=== PATIENT | male | born 1975 | race Caucasian/White ===

== ENCOUNTER → 2016-10-19 | Outpatient (CLI) | payer OTHER ==
[2016-10-14 13:11] VITALS: BMI 34.5
--- NOTE | 2016-10-19 14:51 | P.PN ---
Progress Note - Text Patient came today for initial consultation visit, the nurse interviewing the patient, and he told her that he smoked marijuana, and she told him that we cannot give him any prescription for opiate if he smoked marijuana, and patient left the clinic before he was seen by me,
== END | disposition home or self-care (01) ==
LOC: PNWHC3 13:58
PROVIDERS: ATTEND Specialist
DX: M51.36 Other intervertebral disc degeneration, lumbar region (principal); M50.30 Other cervical disc degeneration, unspecified cervical region; F12.90 Cannabis use, unspecified, uncomplicated

== ENCOUNTER 2017-01-12 08:42 | Emergency (ER) | payer OTHER ==
[2017-01-12 08:49] VITALS: RESP 18; TEMP 97.8
[2017-01-12] MEDS ORDERED: MECLIZINE 12.5 MG TAB PO STA (09:00)
[2017-01-12] MEDS ORDERED: SODIUM CHLORIDE 0.9% 500 ML IV STA (09:00)
--- NOTE | 2017-01-12 09:12 | ED ---
Dizziness HPI - General Chief Complaint: Dizziness Stated Complaint: HYPOGLYCEMIA Time Seen by Provider: 01/12/17 08:52 Source: patient, RN notes reviewed Mode of arrival: wheelchair Limitations: no limitations - History of Present Illness Initial Comments: 41-year-old male presents emergency Department chief complaint of dizziness. Patient states her last 2 days he's had dizziness worse with movement. Patient states it started yesterday morning when he sat up quickly out of bed and felt that the room was spinning. Patient states symptoms lessened throughout the day before still present. Patient states he woke up again today symptoms worse. Patient states that even when he lays back he says it feels symptoms of is not moving they are better. Patient did complain of intermittent chest pain greater than one month. Patient states she has no chest pain this time. Patient states she's also hasn't shortness of breath though he is a daily smoker. Patient states he takes medication for high blood pressure and chronic pain. Patient a states morphine, Percocet. Patient denies any nausea, vomiting , diarrhea, focal weakness. Patient denies any neck pain or any headaches at this time. Patient has blurred vision. Patient has no cold-like symptoms including runny nose, ear pain, sore throat cough or chest congestion. - Related Data Home Medications Medication Instructions Recorded Confirmed Morphine Sulfate ER [Ms Contin 15 mg PO Q12HR 10/14/16 01/12/17 15Mg] oxyCODONE-APAP 10-325MG [Percocet 1 tab PO BID PRN 10/14/16 01/12/17 10-325 mg] Albuterol Inhaler [Ventolin Hfa 1 - 2 puff INHALATION RT-Q4H PRN 01/12/17 Inhaler] Dextroamphetamine/Amphetamine 30 mg PO BID 01/12/17 01/12/17 [Adderall] Omeprazole [PriLOSEC] 20 mg PO DAILY 01/12/17 01/12/17 Previous Rx's Medication Instructions Recorded Meclizine [Antivert] 25 mg PO TID PRN #15 tab 01/12/17 Allergies Allergy/AdvReac Type Severity Reaction Status Date / Time paper tape Allergy blisters Uncoded 10/19/16 14:41 Review of Systems ROS Statement: Those systems with pertinent positive or pertinent negative responses have been documented in the HPI. ROS Other: All systems not noted in ROS Statement are negative. Past Medical History Past Medical History: GERD/Reflux, Hypertension, Liver Disease, Sleep Apnea/CPAP /BIPAP Additional Past Medical History / Comment(s): hx:fatty liver, deteriorating/ bulging disc L3-L5, herniated disc neck History of Any Multi-Drug Resistant Organisms: None Reported Past Surgical History: Appendectomy, Orthopedic Surgery Additional Past Surgical History / Comment(s): rt knee x2 Past Anesthesia/Blood Transfusion Reactions: No Reported Reaction Smoking Status: Current every day smoker Past Alcohol Use History: Occasional Additional Past Alcohol Use History / Comment(s): smoker since age 11- 2ppd Past Drug Use History: Marijuana Additional Drug Use History / Comment(s): 1 joint/day - Past Family History Mother Family Medical History: No Reported History General Exam Limitations: no limitations General appearance: alert, in no apparent distress Head exam: Present: atraumatic, normocephalic, normal inspection Eye exam: Present: normal appearance, PERRL, EOMI. Absent: scleral icterus, conjunctival injection, periorbital swelling ENT exam: Present: normal exam, normal oropharynx, mucous membranes moist, TM's normal bilaterally, normal external ear exam Neck exam: Present: normal inspection, full ROM. Absent: tenderness, meningismus, lymphadenopathy Respiratory exam: Present: normal lung sounds bilaterally. Absent: respiratory distress, wheezes, rales, rhonchi, stridor Cardiovascular Exam: Present: regular rate, normal rhythm, normal heart sounds. Absent: systolic murmur, diastolic murmur, rubs, gallop, clicks Neurological exam: Present: alert, oriented X3, CN II-XII intact, reflexes normal, other (Finger to nose intact bilaterally without shooting.). Absent: motor sensory deficit Skin exam: Present: warm, dry, intact, normal color. Absent: rash Course Vital Signs 01/12/17 08:48 Temperature 97.8 F Pulse Rate 61 Respiratory 18 Rate Blood Pressure 121/71 O2 Sat by Pulse 99 Oximetry EKG Findings - EKG Comments: EKG Findings:: EKG performed at 9:02 normal sinus rhythm with a rate of 62, FL 150, QRS duration 86, QT/QTC 424/[address] elevation or depression. Medical Decision Making - Medical Decision Making 41-year-old male present emergency department for dizziness. Patient's symptoms are worse with movement. Patient does feel better after Antivert. Patient lab work, EKG and chest x-ray within normal limits. Patient has diagnosis of vertigo. Patient be discharged with Antivert return parameters were discussed. - Lab Data Result diagrams: 01/12/17 09:24 01/12/17 09:24 Lab Results 01/12/17 01/12/17 01/12/17 Range/Units 09:24 09:24 09:24 WBC 7.0 (3.8-10.6) k/uL RBC 5.70 (4.30-5.90) m/uL Hgb 16.6 (13.0-17.5) gm/dL Hct 50.9 (39.0-53.0) % MCV 89.2 (80.0-100.0) fL MCH 29.2 (25.0-35.0) pg MCHC 32.7 (31.0-37.0) g/dL RDW 13.0 (11.5-15.5) % Plt Count 350 (150-450) k/uL Neutrophils % 69 % Lymphocytes % 23 % Monocytes % 5 % Eosinophils % 1 % Basophils % 1 % Neutrophils # 4.8 (1.3-7.7) k/uL Lymphocytes # 1.6 (1.0-4.8) k/uL Monocytes # 0.4 (0-1.0) k/uL Eosinophils # 0.1 (0-0.7) k/uL Basophils # 0.0 (0-0.2) k/uL D-Dimer (<0.60) mg/L FEU Sodium 140 (137-145) mmol/L Potassium 4.5 (3.5-5.1) mmol/L Chloride 105 (98-107) mmol/L Carbon Dioxide 22 (22-30) mmol/L Anion Gap 13 mmol/L BUN 13 (9-20) mg/dL Creatinine 0.72 (0.66-1.25) mg/dL Est GFR (MDRD) Af Amer >60 (>60 ml/min/1.73 sqM) Est GFR (MDRD) Non-Af >60 (>60 ml/min/1.73 sqM) Glucose 173 H (74-99) mg/dL Calcium 9.4 (8.4-10.2) mg/dL Total Bilirubin 0.8 (0.2-1.3) mg/dL AST 27 (17-59) U/L ALT 39 (21-72) U/L Alkaline Phosphatase 111 (38-126) U/L Troponin I <0.012 (0.000-0.034) ng/mL Total Protein 7.1 (6.3-8.2) g/dL Albumin 4.2 (3.5-5.0) g/dL 01/12/17 Range/Units 09:24 WBC (3.8-10.6) k/uL RBC (4.30-5.90) m/uL Hgb (13.0-17.5) gm/dL Hct (39.0-53.0) % MCV (80.0-100.0) fL MCH (25.0-35.0) pg MCHC (31.0-37.0) g/dL RDW (11.5-15.5) % Plt Count (150-450) k/uL Neutrophils % % Lymphocytes % % Monocytes % % Eosinophils % % Basophils % % Neutrophils # (1.3-7.7) k/uL Lymphocytes # (1.0-4.8) k/uL Monocytes # (0-1.0) k/uL Eosinophils # (0-0.7) k/uL Basophils # (0-0.2) k/uL D-Dimer 0.35 (<0.60) mg/L FEU Sodium (137-145) mmol/L Potassium (3.5-5.1) mmol/L Chloride (98-107) mmol/L Carbon Dioxide (22-30) mmol/L Anion Gap mmol/L BUN (9-20) mg/dL Creatinine (0.66-1.25) mg/dL Est GFR (MDRD) Af Amer (>60 ml/min/1.73 sqM) Est GFR (MDRD) Non-Af (>60 ml/min/1.73 sqM) Glucose (74-99) mg/dL Calcium (8.4-10.2) mg/dL Total Bilirubin (0.2-1.3) mg/dL AST (17-59) U/L ALT (21-72) U/L Alkaline Phosphatase (38-126) U/L Troponin I (0.000-0.034) ng/mL Total Protein (6.3-8.2) g/dL Albumin (3.5-5.0) g/dL - Radiology Data Radiology results: report reviewed, image reviewed Chest x-ray shows no acute Disposition Clinical Impression: Vertigo Disposition: HOME SELF-CARE Condition: Stable Instructions: Vertigo (ED) Additional Instructions: Please return to the Emergency Department if symptoms worsen or any other concerns. Prescriptions: Meclizine [Antivert] 25 mg PO TID PRN #15 tab PRN Reason: Vertigo Time of Disposition: 10:54
[2017-01-12 09:43] LABS: Basophils % (A) 1 %; CH 29.6; CHCM 33.3; Eosinophils # (A) 0.1 k/uL (0-0.7); Eosinophils % (A) 1 %; HCT 50.9 % (39.0-53.0); HDW 2.53; HGB 16.6 gm/dL (13.0-17.5); Luc # (Auto) 0.11; Luc % (Auto) 2; Lymphocytes # (A) 1.6 k/uL (1.0-4.8); Lymphocytes % (A) 23 %; MCH 29.2 pg (25.0-35.0); MCHC 32.7 g/dL (31.0-37.0); MCV 89.2 fL (80.0-100.0); Mean Platelet Volume 6.7; Monocytes # (A) 0.4 k/uL (0-1.0); Monocytes % (A) 5 %; Neutrophils # (A) 4.8 k/uL (1.3-7.7); Neutrophils % (A) 69 %; WBC (Perox) 7.17
[2017-01-12 09:53] LABS: ALT 39 U/L (21-72); AST 27 U/L (17-59); Alkaline Phosphatase 111 U/L (38-126); Anion Gap 13 mmol/L; Blood Urea Nitrogen 13 mg/dL (9-20); Calcium 9.4 mg/dL (8.4-10.2); Carbon Dioxide 22 mmol/L (22-30); Chloride 105 mmol/L (98-107); Glucose 173 mg/dL (74-99); Non-African American GFR(MDRD) >60 (>60 ml/min/1.73 sqM); Potassium 4.5 mmol/L (3.5-5.1); Sodium 140 mmol/L (137-145); Total Bilirubin 0.8 mg/dL (0.2-1.3); Total Protein 7.1 g/dL (6.3-8.2)
--- NOTE | 2017-01-12 09:57 | XR ---
EXAMINATION TYPE: XR chest 2V DATE OF EXAM: 01/12/2017 9:54 AM COMPARISON: NONE HISTORY: Dizziness and weakness. TECHNIQUE: Frontal and lateral views of the chest are obtained. FINDINGS: There is no focal air space opacity, pleural effusion, or pneumothorax seen. The cardiac silhouette size is within normal limits. The osseous structures are intact. IMPRESSION: No acute cardiopulmonary process.
[2017-01-12 11:17] VITALS: BP 127/65; PULSE 58
== END 2017-01-12 11:15 | disposition home or self-care (01) ==
LOC: EC 08:42
DX: R42 Dizziness and giddiness (principal); H53.8 Other visual disturbances; R07.9 Chest pain, unspecified; G89.29 Other chronic pain; K21.9 Gastro-esophageal reflux disease without esophagitis; F17.200 Nicotine dependence, unspecified, uncomplicated; Z79.891 Long term (current) use of opiate analgesic; Z79.899 Other long term (current) drug therapy; Z91.09 Other allergy status, other than to drugs and biological substances
CPT/HCPCS: 36415; 71020; 80053; 84484; 85025; 85379; 93005; 96360; 99284

== ENCOUNTER → 2017-10-03 | Outpatient (CLI) | payer MEDICARE, OTHER ==
--- NOTE | 2017-10-04 01:11 | MR ---
EXAMINATION TYPE: MR lumbar spine wo/w con DATE OF EXAM: 10/03/2017 COMPARISON: NONE HISTORY: Low back pain TECHNIQUE: Multiplanar, multisequence images of the lumbar spine were acquired utilizing 12 mL intravenous Gadav ist gadolinium contrast. The lumbar vertebra have normal alignment. Disc spaces are fairly well-maintained. There is mild post erior disc herniation at L5-S1 centrally and towards the left side. There are small posterior L4-[address] bulge. There is small posterior L2-3 disc bulge. There is no spinal stenosis. There is development ally adequate spinal canal. I see no pathologic enhancement. The lumbar neural foramina are fairly we ll maintained. There is no compression fracture. There is no paraspinal mass. Sacroiliac joints are i ntact. IMPRESSION: There is posterior central and left-sided L5-S1 disc herniation. No spinal stenosis. Mild posterior c oncentric L2-3 disc bulging. No fracture.
== END | disposition home or self-care (01) ==
LOC: RADMRIMAIN 12:47
PROVIDERS: ATTEND Physician Assistant
DX: M51.27 Other intervertebral disc displacement, lumbosacral region (principal); M51.26 Other intervertebral disc displacement, lumbar region
CPT/HCPCS: 82565; 72158; A9581

== ENCOUNTER → 2018-05-10 | Outpatient (CLI) | payer MEDICARE, OTHER ==
[2018-05-10 12:21] LABS: Blood Urea Nitrogen 19 mg/dL (9-20)
== END | disposition home or self-care (01) ==
LOC: LABWHC1 11:22
PROVIDERS: ATTEND Physical Medicine & Rehabilitation
DX: N28.9 Disorder of kidney and ureter, unspecified (principal)
CPT/HCPCS: 36415; 82565; 84520

== ENCOUNTER 2018-06-21 05:37 | Day surgery (SDC) | payer MEDICARE, OTHER ==
[2018-06-13 15:06] VITALS: BMI 35.2
[~2018-06-21 05:37] MED LIST: BACITRACIN 50,000 UNIT, POLYMYXIN B 500,000 UNIT in SODIUM CHLORIDE 0.9% IRRIGATIO 1,00... IRRIGATION ONE; ceFAZolin IN SWFI 2 GM/20 ML SYRINGE IVP ONE
[2018-06-21] MEDS ORDERED: LIDOCAINE 1% 20 ML VIAL (10MG/ML) FOR IV START INTRADERMA PRN (05:58)
[2018-06-21] MEDS: LACTATED RINGERS 1,000 ML IV SCH ×2 (06:17→07:34)
[2018-06-21] MEDS ORDERED: ONDANSETRON 4 MG/2 ML VIAL ONE (06:19)
[2018-06-21] MEDS ORDERED: NEOSTIGMINE 1 MG/ML 10 ML VIAL ONE (07:37)
[2018-06-21] MEDS ORDERED: PROPOFOL 10 MG/ML 20 ML VIAL IV ONE (07:37)
[2018-06-21] MEDS ORDERED: SUCCINYLCHOLINE CHLORIDE 100 MG/5 ML SYR IV ONE (07:37)
[2018-06-21] MEDS ORDERED: MIDAZOLAM 2 MG/2 ML VIAL ONE (07:37)
[2018-06-21] MEDS ORDERED: GLYCOPYRROLATE 0.2 MG/ML 2 ML VIAL ONE (07:37)
[2018-06-21] MEDS ORDERED: ACETAMINOPHEN IV (For NPO) 1,000 MG/100 ML VIAL ONE (07:37)
[2018-06-21] MEDS ORDERED: KETAMINE 10 MG/ML 20 ML VIAL ONE (07:37)
[2018-06-21] MEDS ORDERED: fentaNYL (PF) 50 MCG/ML 2 ML AMP ONE (07:37)
[2018-06-21] MEDS ORDERED: ALBUTEROL INHALER 60 PUFF/8 GM INHALER INHALATION ONE (07:37)
[2018-06-21] MEDS ORDERED: LIDOCAINE 1% INJ 10MG/ML (20 ML MDV) ONE (07:37)
[2018-06-21] MEDS ORDERED: ROCURONIUM BROMIDE 10 MG/ML 10 ML VIAL IV ONE (07:37)
[2018-06-21] MEDS ORDERED: LIDOCAINE 0.5%-EPI 1:200,000 50 ML VIAL SQ ONE ×2 (08:01)
[2018-06-21] MEDS ORDERED: GELATIN SPONGE,ABSORB (LARGE) 1 EACH SPONGE TOPICAL ONE (08:04)
[2018-06-21] MEDS ORDERED: THROMBIN (BOVINE) 5,000 UNIT VIAL TOPICAL ONE (08:05)
[2018-06-21] MEDS ORDERED: methylPREDNISolone ACETATE 40 MG/ML 1 ML VIAL MISCELLANE ONE (08:28)
--- NOTE | 2018-06-21 08:34 | FL ---
Fluoroscopy HISTORY: Lumbar laminectomy 3 seconds fluoroscopy time supplied to the referring clinician. 1 intraoperative C-arm images docume nt the procedure. See dictated report from orthopedic surgery.
--- NOTE | 2018-06-21 08:35 | XR ---
Limited lumbar spine HISTORY: Lumbar laminectomy Single lateral intraoperative image documents the procedure
[2018-06-21] MEDS ORDERED: LACTATED RINGERS 1,000 ML IV ONE (08:45)
[2018-06-21] MEDS ORDERED: ONDANSETRON 4 MG/2 ML VIAL IVP PRN (09:00)
[2018-06-21] MEDS ORDERED: SODIUM CHLORIDE 0.9% 1,000 ML IV SCH (09:00)
[2018-06-21] MEDS ORDERED: IBUPROFEN 600 MG TAB PO PRN (09:00)
[2018-06-21] MEDS ORDERED: HYDROmorphone 1 MG/ML 1 ML SYRINGE IVP PRN ×2 (09:00)
[2018-06-21] MEDS: HYDROmorphone 1 MG/ML 1 ML SYRINGE IVP PRN ×2 (09:00→09:15)
[2018-06-21] MEDS ORDERED: BENZOCAINE/MENTHOL LOZENG 1 EACH LOZENGE MUCOUS MEM PRN (09:00)
--- NOTE | 2018-06-21 09:09 | P.OP ---
Date of Procedure: 06/21/18 Preoperative Diagnosis: Herniated nucleus pulposis L4 5, lower extremity radiculopathy, lower extremity weakness Postoperative Diagnosis: Same Anesthesia: GETA Pathology: none sent Condition: stable Disposition: PACU Description of Procedure: BRIEF OPERATIVE NOTE Preoperative Diagnosis: Herniated nucleus pulposis L4 5, lower extremity radiculopathy, lower extremity weakness Postoperative Diagnosis: Same Procedure: Laminectomy and decompression at L4 5 Discectomy for decompression at L4 5 Use of fluoroscopic guidance Surgeon: Dr. Oliver Clearance Diver: Shorty Eugene is present throughout the entire the case persistence during positioning, dissection, exposure, visualization, and all crucial elements of the case as well as closure. Anesthesia: General anesthesia Estimated blood loss: approximately 50 mL Complications: None apparent Components implanted: none Disposition: To recovery room in good stable condition. OPERATIVE INDICATIONS The patient has been having issues in their lower back and lower extremities. He was found have a disc herniation at L4 5 with extruded fragment that had migrated cephalad. The findings correlated well with his low back and lower extremity radiculopathy well some weakness in his lower extremity. The patient has been through conservative treatment. he is not having any significant benefit despite aggressive conservative care. We discussed various treatment options including surgery, and the patient wishes to proceed with surgery We discussed the risk, patient's alternatives and benefits of surgery including but not limited to, risk of bleeding risk of infection, risk of need for further surgery, risk of decreased, loss of motion, loss of function, nerve damage, paralysis, heart attack, blindness and . OPERATIVE SUMMARY After discussing all the risks, patient alternatives and benefits at length, the patient elected to proceed with surgical intervention, signed informed consent, and presented for their procedure. The patient was seen and examined in the preoperative holding area and the surgical site was marked. The patient was given antibiotics and brought to the operating room. The patient was sedated and intubated by anesthesia in standard fashion. The patient was positioned on to the operating room table in a prone position on the appropriate frame which was well-padded and well molded. We were careful to pad any bony prominences and pressure points. We were careful to maintain the patient's cervical spine and good neutral alignment and position throughout. The patient was prepped and draped in a normal standard fashion. An appropriate timeout and keystone protocol performed. We were able to proceed with the surgery. Fluoroscopy was utilized to establish the appropriate level At L4 5. The local wound area was infiltrated with local anesthetic. An incision was made at the midline longitudinally over the appropriate levels Approximately 2 cm at L4 5. Dissection was taken down subcutaneously to the level of the fascia which was split midline. Dissection was taken over the lamina. Intraoperative fluoroscopy was taken which showed a marker at the appropriate level. With the appropriate level positively confirmed, at L4 5, we were able to proceed with laminectomy. The wound was copiously irrigated and suctioned dry as had been done periodically throughout the case. I performed a laminectomy with a combination of curettes and a high-speed bur and Kerrison rongeurs. A small medial facetectomy was performed again further access. A partial foraminotomy was also performed. Portions of the ligamentum flavum were taken down to expose the dura and traversing nerve root. I was able to mobilize the traversing nerve root and gain access to the disc space. Note was made of obvious compression from the disc. Protecting the soft tissue structures, a small annulotomy was established. I was able to perform discectomy and remove any extruded disc fragments and any loose fragments from within the disc itself. there was a extruded fragment with cephalad migration which was able to be mobilized and removed. There is some significant disc desiccation noted. I tried to preserve the disc annulus that appeared stable. There were no further extruded fragments noted. There is no evidence of dural tear or leak. Good hemostasis maintained. The wound was copiously irrigated and suctioned dry. Good decompression and discectomy was noted. We were able to proceed with closure. The fascia was closed for a watertight closure. The subcuticular tissue was closed with absorbable suture. The wound was cleaned and dried and dressed with the appropriate dressing. The drapes were broken down. The patient was gently rolled back onto their hospital bed being careful to maintain their cervical spine and good neutral alignment and position. They were woken up by anesthesia, extubated, and brought to the recovery room in good stable condition. The patient will be admitted to the hospital for observation and for appropriate postoperative care, medical management and monitoring. We will continue to follow them closely about the postoperative course.
[2018-06-21] MEDS ORDERED: SENNOSIDES-DOCUSATE SODIUM 1 EACH TAB PO SCH (10:00)
[2018-06-21 11:35] VITALS: TEMP 97.6
[2018-06-21] MEDS ORDERED: KETOROLAC 30 MG/ML 1 ML VIAL IVP SCH (12:00)
[2018-06-21 12:23] VITALS: BP 132/45; PULSE 86; RESP 16
[2018-06-21] MEDS ORDERED: ceFAZolin IN SWFI 2 GM/20 ML SYRINGE IVP SCH (16:00)
== END 2018-06-21 12:15 | disposition home or self-care (01) ==
LOC: OR 05:37 → 5ONC 08:49 → OR 12:15
PROVIDERS: ATTEND Orthopaedic Surgery Orthopaedic Surgery of the Spine
DX: M51.26 Other intervertebral disc displacement, lumbar region (principal); I10 Essential (primary) hypertension; M48.061 Spinal stenosis, lumbar region without neurogenic claudication; M51.16 Intervertebral disc disorders with radiculopathy, lumbar region; F17.210 Nicotine dependence, cigarettes, uncomplicated; K21.9 Gastro-esophageal reflux disease without esophagitis; G89.4 Chronic pain syndrome; Z79.899 Other long term (current) drug therapy; Z82.49 Family history of ischemic heart disease and other diseases of the circulatory system
CPT/HCPCS: 72020; 63030; J2250; J1030; J2710; J2405; J2001; J3010; J1170; J0131; J0330; J2704; J0690

== ENCOUNTER 2019-08-23 12:03 | Emergency (ER) | payer OTHER, MEDICARE ==
[2019-08-23 12:18] VITALS: TEMP 98.5
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
[2019-08-23 14:36] VITALS: BP 117/81; PULSE 64; RESP 16
== END 2019-08-23 14:36 | disposition home or self-care (01) ==
LOC: EC 12:03
DX: S33.5XXA Sprain of ligaments of lumbar spine, initial encounter (principal); M79.672 Pain in left foot; K21.9 Gastro-esophageal reflux disease without esophagitis; I10 Essential (primary) hypertension; G47.30 Sleep apnea, unspecified; Z99.89 Dependence on other enabling machines and devices; F17.200 Nicotine dependence, unspecified, uncomplicated; Z79.1 Long term (current) use of non-steroidal anti-inflammatories (NSAID); Z79.899 Other long term (current) drug therapy; Z91.048 Other nonmedicinal substance allergy status; V29.49XA Motorcycle driver injured in collision with other motor vehicles in traffic accident, initial encounter; Y92.410 Unspecified street and highway as the place of occurrence of the external cause
CPT/HCPCS: 71046; 72125; 72131; 73502; 99284

== ENCOUNTER → 2019-11-07 | Outpatient (CLI) | payer MEDICARE, OTHER ==
--- NOTE | 2019-11-07 19:41 | MR ---
EXAMINATION TYPE: MR lumbar spine wo/w con DATE OF EXAM: 11/07/2019 COMPARISON: 10/03/2017 HISTORY: low Back Pain CONTRAST: 11.5 mL intravenous Gadavist. TECHNIQUE: Multiplanar, multisequence images of the lumbar spine were acquired. FINDINGS: L5-S1: Mild disc bulge is present with anterior thecal sac flattening facet hypertrophy is present. M oderate bilateral foraminal narrowing is present on the left. Findings appear stable No spinal canal stenosis. L4-L5: There is mild disc bulging with mild anterior thecal sac flattening. This is slightly greater to the left paracentral region. No spinal canal stenosis. No foraminal stenosis. L3-L4: No significant disc bulge or disc herniation. No spinal canal stenosis. No foraminal stenosi s. L2-L3: Minimal disc bulge is present with intrathecal sac contact. No spinal canal stenosis is presen t No foraminal stenosis. L1-L2: No significant disc bulge or disc herniation. No spinal canal stenosis. No foraminal stenosi s. T12-L1: No significant disc bulge or disc herniation. No spinal canal stenosis. No foraminal stenos is. No abnormal enhancement. IMPRESSION: 1. Mild stable disc bulging L2-3, L4-5, L5-S1. 2. Mild foraminal narrowing L5-S1
== END | disposition home or self-care (01) ==
LOC: RADMRIMAIN 17:01
PROVIDERS: ATTEND Physician Assistant Medical
DX: M48.061 Spinal stenosis, lumbar region without neurogenic claudication (principal); M48.07 Spinal stenosis, lumbosacral region; M51.26 Other intervertebral disc displacement, lumbar region; M51.27 Other intervertebral disc displacement, lumbosacral region
CPT/HCPCS: 72158; A9585

== ENCOUNTER 2022-12-30 14:46 | Emergency (ER) | payer MEDICARE, OTHER ==
[2022-12-30] MEDS ORDERED: PROPARACAINE 0.5% OPHTH DROPS 15 ML BTL LEFT EYE STA (15:14)
[2022-12-30] MEDS ORDERED: FLUORESCEIN STRIPS 1 MG STRIP RIGHT EYE ONE (15:16)
--- NOTE | 2022-12-30 15:28 | ED ---
General Adult HPI - General Chief complaint: Eye Problems Stated complaint: Lt eye pain Time Seen by Provider: 12/30/22 15:06 Source: patient, RN notes reviewed Mode of arrival: ambulatory Limitations: no limitations - History of Present Illness Initial comments: 47-year-old male presents to the emergency department chief complaint of left eye pain. Pain started around 1600 yesterday. He states that he was working with wood and metal yesterday but the pain started after. He admits to mild blurring of vision in the left eye. He does not wear contacts. States that he wears reading glasses. Denies fever. - Related Data Home Medications Medication Instructions Recorded Confirmed Omeprazole [PriLOSEC] 20 mg PO DAILY 01/12/17 06/21/18 Ammonium Lactate Cream [Lac-Hydrin 1 applic TOPICAL BID PRN 12/30/22 12/30/22 12% Cream] Betamethasone Dipropionate 1 applic TOPICAL BID PRN 12/30/22 12/30/22 [Betamethasone Dipropionate 0.05%] Dextroamphetamine/Amphetamine 30 mg PO DAILY 12/30/22 12/30/22 [Adderall Xr 30 mg Capsule] Losartan Potassium [Cozaar] 25 mg PO DAILY 12/30/22 12/30/22 Triamcinolone 0.1% Cream [Kenalog 1 applicatio TOPICAL BID 12/30/22 12/30/22 0.1% Cream] Allergies Allergy/AdvReac Type Severity Reaction Status Date / Time paper tape AdvReac blisters Uncoded 12/30/22 15:33 Review of Systems ROS Statement: Those systems with pertinent positive or pertinent negative responses have been documented in the HPI. ROS Other: All systems not noted in ROS Statement are negative. Past Medical History Past Medical History: GERD/Reflux, Hypertension, Liver Disease, Sleep Apnea/CPAP/BIPAP Additional Past Medical History / Comment(s): hx:fatty liver, deteriorating/bulging disc L3-L5, herniated disc neck History of Any Multi-Drug Resistant Organisms: None Reported Past Surgical History: Appendectomy, Orthopedic Surgery Additional Past Surgical History / Comment(s): rt knee x2 Past Anesthesia/Blood Transfusion Reactions: No Reported Reaction Past Psychological History: No Psychological Hx Reported Smoking Status: Current every day smoker Past Alcohol Use History: Occasional Past Drug Use History: Marijuana - Past Family History Mother Family Medical History: Cancer General Exam Limitations: no limitations General appearance: alert, in no apparent distress Head exam: Present: atraumatic, normocephalic, normal inspection Eye exam: Present: PERRL, EOMI, conjunctival injection. Absent: normal appearance (small foreign body to cornea ), scleral icterus, periorbital swelling ENT exam: Present: normal exam, mucous membranes moist Neck exam: Present: normal inspection. Absent: tenderness, meningismus, lymphadenopathy Respiratory exam: Present: normal lung sounds bilaterally. Absent: respiratory distress, wheezes, rales, rhonchi, stridor Cardiovascular Exam: Present: regular rate, normal rhythm, normal heart sounds. Absent: systolic murmur, diastolic murmur, rubs, gallop, clicks Neurological exam: Present: alert, oriented X3 Skin exam: Present: warm, dry, intact, normal color. Absent: rash Course Vital Signs 12/30/22 14:57 Temperature 97.8 F Pulse Rate 74 Respiratory 20 Rate Blood Pressure 170/87 O2 Sat by Pulse 97 Oximetry Procedures - Forgein Body Removal Eye Site: Left Anesthetic Used: Proparacaine Eye Exam Technique: Willson Lamp, Fluorescein Foreign Body Suspected: Metal Forgein Body Removal Technique: Cotton Swab Remaining Debris: No Patient Tolerated: well Medical Decision Making - Medical Decision Making Was pt. sent in by a medical professional or institution (FREDDIE Jasmine, GUEST SERVICE SUPERVISOR, urgent care, hospital, or fci...) When possible be specific @ -[No] Did you speak to anyone other than the patient for history (EMS, parent, family, police, friend...)? What history was obtained from this source @ -[No] Did you review nursing and triage notes (agree or disagree)? Why? @ -[I reviewed and agree with nursing and triage notes] Were old charts reviewed (outside hosp., previous admission, EMS record, old EKG, old radiological studies, urgent care reports/EKG's, fci records)? Report findings @ -[No old charts were reviewed] Differential Diagnosis (chest pain, altered mental status, abdominal pain women, abdominal pain men, vaginal bleeding, weakness, fever, dyspnea, syncope, headache, dizziness, GI bleed, back pain, seizure, CVA, palpatations, mental health, musculoskeletal)? @ -[ocular foreign body, conjunctivitis, keratitis, this list is not all inclusive ] EKG interpreted by me (3pts min.). @ -none X-rays interpreted by me (1pt min.). @ -[None done] CT interpreted by me (1pt min.). @ -[None done] U/S interpreted by me (1pt. min.). @ -[None done] What testing was considered but not performed or refused? (CT, X-rays, U/S, la bs)? Why? @ -[None] What meds were considered but not given or refused? Why? @ -[None] Did you discuss the management of the patient with other professionals (professionals i.e. , PA, GUEST SERVICE SUPERVISOR, lab, RT, psych nurse, social work case manager, heater installer, teacher, protocol officer, telehealth case manager)? Give summary @ -[No] Was smoking cessation discussed for >3mins.? @ -[No] Was critical care preformed (if so, how long)? @ -[No] Were there social determinants of health that impacted care today? How? (Homelessness, low income, unemployed, alcoholism, drug addiction, transportation, low edu. Level, literacy, decrease access to med. care, care home, rehab)? @ -[No] Was there de-escalation of care discussed even if they declined (Discuss DNR or withdrawal of care, Hospice)? DNR status @ -[No] What co-morbidities impacted this encounter? (DM, HTN, Smoking, COPD, CAD, Cancer, CVA, ARF, Chemo, Hep., AIDS, mental health diagnosis, sleep apnea, morbid obesity)? @ -[None] Was patient admitted / discharged? Hospital course, mention meds given and route, prescriptions, significant lab abnormalities, going to OR and other pe rtinent info. @ -discharged. pt presented with eye pain x 1 day. Fluorescence staining was performed with proparicaine anesthetic with no obvious corneal abrasion. Small foreign body removed. tetanus updated. Tobrex drops administered. patient discharged in stable condition. follow up with ophthalmology as outpatient. Undiagnosed new problem with uncertain prognosis? @ -[No] Drug Therapy requiring intensive monitoring for toxicity (Heparin, Nitro, Insulin, Cardizem)? @ -[No] Were any procedures done? @ -[ocular foreign body removal] Diagnosis/symptom? @ -[ocular foreign body Acute, or Chronic, or Acute on Chronic? @ -Acute Uncomplicated (without systemic symptoms) or Complicated (systemic symptoms)? @ -Uncomplicated Side effects of treatment? @ -[No] Exacerbation, Progression, or Severe Exacerbation? @ -[No] Poses a threat to life or bodily function? How? (Chest pain, [place], [place], pneumonia, PE, COPD, DKA, ARF, appy, cholecystitis, CVA, Diverticulitis, Homicidal, Suicidal, threat to staff... and all critical care pts) @ -[No] Disposition Clinical Impression: Foreign body of cornea Disposition: HOME SELF-CARE Condition: Stable Instructions (If sedation given, give patient instructions): Eye Foreign Body (ED) Additional Instructions: Please return to the Emergency Department if symptoms worsen or any other concerns. Is patient prescribed a controlled substance at d/c from ED?: No Referrals: Slava Stacy Jr, DO [Primary Care Provider] - 1-2 days Giorgio Groves MD [STAFF PHYSICIAN] - 1-2 days Time of Disposition: 16:00
[2022-12-30] MEDS ORDERED: TOBRAMYCIN 0.3% OPHTH DROPS 5 ML BTL LEFT EYE STA (15:46)
[2022-12-30] MEDS ORDERED: DIPH,PERTUS(ACELL)TETVAC-LF 0.5 ML VIAL IM ONE (15:47)
[2022-12-30 16:31] VITALS: BP 161/76; PULSE 71; RESP 18; TEMP 98
== END 2022-12-30 16:30 | disposition home or self-care (01) ==
LOC: EC 14:46
DX: T15.02XA Foreign body in cornea, left eye, initial encounter (principal); K21.9 Gastro-esophageal reflux disease without esophagitis; I10 Essential (primary) hypertension; G47.30 Sleep apnea, unspecified; F17.200 Nicotine dependence, unspecified, uncomplicated; F12.90 Cannabis use, unspecified, uncomplicated; Z79.899 Other long term (current) drug therapy; Z91.09 Other allergy status, other than to drugs and biological substances; Z23 Encounter for immunization; W45.8XXA Other foreign body or object entering through skin, initial encounter
CPT/HCPCS: 65220; 90471; 90715; 99283

== ENCOUNTER 2023-02-15 14:55 | Emergency (ER) | payer MEDICARE, OTHER ==
[2023-02-15 15:07] VITALS: BP 115/76; PULSE 66; TEMP 98.1
[2023-02-15] MEDS ORDERED: methylPREDNISolone SOD SUCCI 125 MG/2 ML VIAL IM ONE (15:35)
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
[2023-02-15 16:05] VITALS: RESP 16
== END 2023-02-15 16:05 | disposition home or self-care (01) ==
LOC: EC 14:55
DX: M79.652 Pain in left thigh (principal); I10 Essential (primary) hypertension; K21.9 Gastro-esophageal reflux disease without esophagitis; F17.200 Nicotine dependence, unspecified, uncomplicated; F12.90 Cannabis use, unspecified, uncomplicated; Z79.899 Other long term (current) drug therapy; Z91.09 Other allergy status, other than to drugs and biological substances; X50.1XXA Overexertion from prolonged static or awkward postures, initial encounter
CPT/HCPCS: 99283; 96372; J2930

== ENCOUNTER → 2024-08-11 | Outpatient (CLI) | payer MEDICARE, OTHER ==
--- NOTE | 2024-08-12 09:03 | MR ---
EXAMINATION TYPE: MR knee LT wo con DATE OF EXAM: 08/11/2024 COMPARISON: None HISTORY: Left knee pain and swelling x1 month, Slipped on stairs TECHNIQUE: Multiplanar, multisequence imaging of the left knee is performed without IV contrast. FINDINGS: There is a small joint effusion and a tiny Neely's cyst. There is a complex tear of the posterior horn of the medial meniscus. The lateral meniscus is intact. There is a mild strain of the ACL. The posterior cruciate ligament and medial and lateral collateral ligaments are intact. There is edema in the mid tibial plateau but no discrete fracture. The articular cartilages are intact. There is no osteochondral defect. The patellar quadriceps tendons are intact. IMPRESSION: 1. Complex tear of the posterior horn of the medial meniscus. 2. Mild strain of the anterior cruciate ligament. 3. Small joint effusion and tiny Neely's cyst. 4. Contusion/edema in the mid tibial plateau. [facility], Workstation: [facility], 08/12/2024 9:01 AM
== END | disposition home or self-care (01) ==
LOC: RADMRIMAIN 10:52
PROVIDERS: ATTEND Family Medicine
DX: M23.8X2 Other internal derangements of left knee (principal); S80.02XA Contusion of left knee, initial encounter; M25.462 Effusion, left knee

== ENCOUNTER 2024-08-30 12:18 | Day surgery (SDC) | payer MEDICARE, OTHER ==
[2024-08-28 12:56] VITALS: BMI 34.8
--- NOTE | 2024-08-30 02:44 | HP ---
HISTORY AND PHYSICAL DATE OF SURGERY: 08/30/2024. HISTORY OF PRESENT ILLNESS: Oscar Odom is a 48-year-old patient seen with progressive left knee pain. We discussed options regarding treatment. He elected to proceed with left knee arthroscopy. Consent was obtained. PAST MEDICAL HISTORY: Hypertension, gastroesophageal reflux disease. PAST SURGICAL HISTORY: Knee arthroscopy. DAILY MEDICATIONS: 1. Omeprazole. 2. Adderall. 3. Percocet. ALLERGIES: Paper tape. SOCIAL HISTORY: Smokes cigarettes. PHYSICAL EVALUATION OF THE LEFT KNEE: Range of motion is -1/2 120 degrees. Mild effusion. Tenderness, medial joint line. Positive medial Sheryl's. Ligaments stable. Distal neurovascular exam intact. IMAGING STUDIES: Left knee radiographs revealed mild medial compartment osteoarthritis. MRI left knee complex medial meniscal tear and effusion. IMPRESSION: 1. Internal derangement of left knee with medial meniscal tear. 2. Hypertension. 3. Gastroesophageal reflux disease. PLAN: Left knee arthroscopy with partial medial meniscectomy and debridement. MMODL / IJN: [id number] /
[~2024-08-30 12:18] MED LIST changes: -BACITRACIN 50,000 UNIT, POLYMYXIN B 500,000 UNIT in SODIUM CHLORIDE 0.9% IRRIGATIO 1,00... IRRIGATION ONE; +HYDROmorphone 0.5 MG/0.5 ML SYRINGE IVP PRN; +LIDOCAINE 1% (10MG/ML) FOR IV START INTRADERMA PRN; -ceFAZolin IN SWFI 2 GM/20 ML SYRINGE IVP ONE; +droPERidol 5 MG/2 ML VIAL IVP ONE
[2024-08-30] MEDS: IV FLUID CONTINUATION 1,000 ML IV ONE ×2 (12:46→14:45)
[2024-08-30 13:00] VITALS: RESP 18
[2024-08-30] MEDS: LACTATED RINGERS 1,000 ML IV SCH (13:02)
[2024-08-30] MEDS: DEXAMETHASONE SOD PHOSPHATE 4 MG/ML 1 ML VIAL IV ONE (13:02)
[2024-08-30] MEDS: ONDANSETRON 4 MG/2 ML VIAL IVP ONE (13:02)
[2024-08-30] MEDS ORDERED: fentaNYL (PF) 50 MCG/ML 2 ML AMP ONE (13:30)
[2024-08-30] MEDS ORDERED: PROPOFOL 10 MG/ML 20 ML VIAL IV ONE (13:30)
[2024-08-30] MEDS ORDERED: SUCCINYLCHOLINE CHLORIDE 200 MG/10 ML VIAL IV ONE (13:30)
[2024-08-30] MEDS ORDERED: LIDOCAINE 1% INJ 10MG/ML (20 ML MDV) ONE (13:30)
[2024-08-30] MEDS: BUPIVACAINE (PF) 0.25% 30 ML VIAL SQ ONE ×2 (13:33→14:04)
--- NOTE | 2024-08-30 14:20 | P.OP ---
Date of Procedure: 08/30/24 Preoperative Diagnosis: Internal derangement left knee Postoperative Diagnosis: 1. Tear medial and lateral meniscus left knee 2. Reactive synovitis medial, lateral and suprapatellar compartments left knee 3. Partial ACL tear left knee Procedure(s) Performed: 1. Arthroscopic partial medial and lateral meniscectomy left knee 2. Arthroscopic partial synovectomy medial, lateral and suprapatellar compartments left knee 3. Arthroscopic debridement partial ACL tear left knee Anesthesia: ROSEANNEA, local Surgeon: Wesley Reed Estimated Blood Loss (ml): 5 Pathology: none sent Condition: stable Disposition: PACU Indications for Procedure: 48-year-old gentleman seen with progressive left knee pain. After having treatment options discussed, he elected to proceed with arthroscopy. Operative Findings: See description of procedure Description of Procedure: Patient was taken to the operative suite. Patient underwent a general anesthetic by the department of anesthesia. Patient was given preoperative antibiotics. The left lower extremity was placed in a well-padded arthroscopic leg coleman. The left leg was prepped and draped in the normal sterile orthopedic fashion. A lateral parapatellar and suprapatellar incision was made. Trochars were inserted. Arthroscopy was initiated. Suprapatellar pouch revealed diffuse thick reactive synovitis. The patellofemoral joint appeared to articulate congruently. There was grade I chondromalacia of the patella without significant tears. The scope was guided into the medial gutter. No loose bodies or plica were identified. The scope was then guided into the medial c ompartment. A medial parapatellar incision was made. Trocar inserted followed by probe. There was a complex tear involving the posterior horn and mid bodies of the medial meniscus. There were grade I chondromalacia changes involving the medial compartment. There was thick reactive synovitis anteriorly. I performed a partial medial meniscectomy getting down to stable meniscal tissue. I perfo rmed a partial synovectomy decompressing the reactive synovitis. The residual meniscus was stable. There was good decompression of the synovitis. Scope and probe were then guided into the intercondylar notch. There appeared to be some partial tearing of the anterior cruciate ligament. I debrided those areas of tearing with a motorized shaver. The residual ACL appeared stable with about 70% of the remaining ligament intact. PCL appeared stable. The scope and probe were then guided into lateral compartment. There was a radial tear involving the mid bilateral meniscus. There was some thick reactive synovitis anteriorly. There were grade I chondromalacia changes lateral tibial plateau without tears. I performed a partial lateral meniscectomy getting down to stable meniscal tissue. I performed a partial synovectomy decompressing the reactive synovitis. The residual meniscus was stable. There was good decompression of the synovitis. The scope was in guided back into the suprapatellar compartment. I reduced a motorized shaver into the suprapatellar compartment. I debrided some piecemeal fragments of meniscus I encountered. I performed a partial synovectomy. The shaver was now removed. There was good decompression of the synovitis. I now took 1 more look around the entire knee, no residual debris. Instruments were now removed from the joint. The joint was infiltrated with .25% Marcaine. Steri-Strips were applied to the portal sites. Sterile dressings were applied. The patient was placed into a DAMEON hose. No tourniquet was utilized. The patient was awakened, transferred to a bed and taken to recovery stable satisfactory condition.
[2024-08-30 14:32] VITALS: TEMP 98.4
[2024-08-30 15:25] VITALS: BP 105/69; PULSE 75
== END 2024-08-30 15:55 | disposition home or self-care (01) ==
LOC: OR 12:18
PROVIDERS: ATTEND Orthopaedic Surgery
DX: S83.232A Complex tear of medial meniscus, current injury, left knee, initial encounter (principal); S83.282A Other tear of lateral meniscus, current injury, left knee, initial encounter; S83.512A Sprain of anterior cruciate ligament of left knee, initial encounter; M94.262 Chondromalacia, left knee; M17.12 Unilateral primary osteoarthritis, left knee; M65.862 Other synovitis and tenosynovitis, left lower leg; I10 Essential (primary) hypertension; G47.33 Obstructive sleep apnea (adult) (pediatric); K21.9 Gastro-esophageal reflux disease without esophagitis; K76.0 Fatty (change of) liver, not elsewhere classified; F17.210 Nicotine dependence, cigarettes, uncomplicated; Z79.899 Other long term (current) drug therapy
CPT/HCPCS: 29880; 29876; J1100; J0690; J2405; J0665

== ENCOUNTER 2024-09-10 10:36 | Observation (INO) | payer MEDICARE, OTHER ==
[2024-09-10] MEDS: IV FLUID CONTINUATION 1,000 ML IV ONE (10:55)
[2024-09-10] MEDS: LACTATED RINGERS 1,000 ML IV SCH (11:06)
[2024-09-10] MEDS ORDERED: PROPOFOL 10 MG/ML 20 ML VIAL IV ONE (11:39)
[2024-09-10] MEDS ORDERED: LIDOCAINE 1% INJ 10MG/ML (20 ML MDV) ONE (11:39)
--- NOTE | 2024-09-10 12:12 | P.GSHP ---
History of Present Illness H&P Date: 09/10/24 Chief Complaint: Screening colonoscopy Is a 48-year-old male presents today for screening colonoscopy. Patient denies any significant GI complaints. Past Medical History Past Medical History: GERD/Reflux, Hypertension, Liver Disease, Sleep Apnea/CPAP/BIPAP Additional Past Medical History / Comment(s): hx:fatty liver, deteriorating/bulging disc L3-L5, herniated disc neck History of Any Multi-Drug Resistant Organisms: None Reported Past Surgical History: Appendectomy, Orthopedic Surgery Additional Past Surgical History / Comment(s): rt knee x2, recent arthroscopy left knee 08/30/24 Past Anesthesia/Blood Transfusion Reactions: No Reported Reaction Smoking Status: Current every day smoker - Past Family History Mother Family Medical History: Cancer Medications and Allergies Home Medications Medication Instructions Recorded Confirmed Type Omeprazole [PriLOSEC] 20 mg PO DAILY 01/12/17 09/10/24 History Dextroamphetamine/Amphetamine 30 mg PO DAILY 12/30/22 09/10/24 History [Adderall Xr 30 mg Capsule] Losartan Potassium [Cozaar] 25 mg PO DAILY 12/30/22 09/10/24 History Glucosam/Rigo-Msm1/C/Jimbo/Bosw 1 each PO DAILY 08/28/24 09/10/24 History [Glucosamine-Chondroitin Tablet] Ibuprofen [Motrin] 800 mg PO Q8H PRN 08/28/24 09/10/24 History Magnesium 200 mg PO DAILY 08/28/24 09/10/24 History HYDROcodone/APAP 5-325MG [[place] 1 tab PO Q6HR PRN #12 tab 08/30/24 09/10/24 Rx 5-325] Allergies Allergy/AdvReac Type Severity Reaction Status Date / Time paper tape AdvReac blisters Uncoded 09/10/24 11:08 Surgical - Exam Vital Signs Pulse Resp BP Pulse Ox 55 L 16 150/67 100 09/10/24 10:55 09/10/24 10:55 09/10/24 10:55 09/10/24 10:55 - General well developed, well nourished, no distress - Eyes PERRL - ENT normal pinna - Neck no masses - Respiratory normal expansion - Cardiovascular Rhythm: regular - Abdomen Abdomen: soft, non tender Assessment and Plan Assessment: Will perform screening colonoscopy
--- NOTE | 2024-09-10 12:14 | P.OP ---
Date of Procedure: 09/10/24 Preoperative Diagnosis: Screening colonoscopy Postoperative Diagnosis: Normal colonoscopy Procedure(s) Performed: Colonoscopy Anesthesia: MAC Surgeon: Endy Hu Pathology: none sent Condition: stable Disposition: PACU Description of Procedure: The patient was placed on the endoscopy table in the lateral position. He received IV sedation. Digital rectal exams performed. This revealed no abnormalities. The flexible colonoscope was then placed patient anus passed throughout the entire colon. The ileocecal valve was visualized. The cecum, ascending and transverse colon appeared normal. The descending and sigmoid colon appeared normal. Scope was then brought back to the rectum this appeared normal. Scope withdrawn for the patient. The patient was noted to have tachycardia which appeared to be irregular. Anesthesia was working the patient up for new onset A-fib.
[2024-09-10] MEDS ORDERED: LORazepam 2 MG/ML INJ IV PRN (13:08)
[2024-09-10] MEDS: METOPROLOL SUCCINATE (ER) 25 MG TAB.ER.24H PO SCH (13:17)
--- NOTE | 2024-09-10 13:17 | P.CRDCN ---
History of Present Illness History of present illness: HISTORY OF PRESENT ILLNESS: This is a 48-year-old male with a past medical history significant for hypertension, obstructive sleep apnea, obesity, nicotine dependence, frequent alcohol use, and daily marijuana use. Patient does not follow with a mangle press catcher. We have been asked to see the patient in consultation for A-fib with RVR. Patient examined at the bedside in the recovery room. Patient underwent routine screening colonoscopy today with Dr. Hu. Endoscopy was unremarkable and patient's colon appeared normal per dictation. The patient was found to be tachycardic afterwards. An EKG was performed revealing atrial fibrillation with RVR. The patient denies a history of atrial fibrillation. The patient currently denies any chest pain or pressure. He denies any shortness of breath. He denies any palpitations. He denies dizziness or lightheadedness. He remains in atrial fibrillation at the time of examination with a heart rate around [id number]. Patient is a current cigarette smoker and smokes 2 packs/day. Patient reports drinking every weekend and occasionally throughout the week. He also reports daily marijuana use. He also reports a history of low testosterone and has been on testosterone replacement for the past several months. REVIEW OF SYSTEMS: At the time of my exam: CONSTITUTIONAL: Denies fever or chills. HEENT: Denies blurred vision, vision changes, or eye pain. Denies hemoptysis CARDIOVASCULAR: Denies chest pain. Denies orthopnea. Denies PND. Denies palpitations RESPIRATORY: Denies shortness of breath. GASTROINTESTINAL: Denies abdominal pain. Denies nausea or vomiting. HEMATOLOGIC: Denies bleeding disorders. GENITOURINARY: Denies any blood in urine. SKIN: Denies pruitis. Denies rash. PHYSICAL EXAM: VITAL SIGNS: Reviewed. GENERAL: Well-developed in no acute distress. HEENT: Head is normocephalic. Pupils are equal, round. Sclerae anicteric. Mucous membranes of the mouth are moist. Neck supple. No JVD or thyromegaly LUNGS: Respirations even and unlabored. Lungs essentially clear to auscultation bilaterally. HEART: Mildly tachycardic. Irregular rate and rhythm. S1 and S2 heard. ABDOMEN: Soft. Nondistended. Nontender. EXTREMITIES: Normal range of motion. No clubbing or cyanosis. Peripheral pulses intact. No lower extremity edema NEUROLOGIC: Awake and alert. Oriented x 3. ASSESSMENT: Status post screening colonoscopy revealing unremarkable colon New onset A-fib with RVR Hypertension Obstructive sleep apnea with CPAP use Nicotine dependence, patient reports smoking 2 packs/day Frequent alcohol use Daily marijuana use Obesity: BMI 49.4 PLAN: Obtain 2D echo to assess cardiac structure and function Begin metoprolol succinate 25 mg daily. First dose now. Begin Eliquis 5 mg twice a day. Patient cleared to begin anticoagulation per Dr. Hu. Check TSH, CBC, BMP, magnesium, lipid panel, and hemoglobin A1c Smoking cessation recommended. Patient to be referred to [place] quit line upon discharge Abstinence from alcohol and marijuana encouraged Continue telemetry monitoring Admit to 6N with telemetry Possible discharge this evening versus tomorrow Further recommendations pending patient course Nurse practitioner note has been reviewed by physician. Signing provider agrees with the documented findings, assessment, and plan of care documented by TECHNOLOGY RESOURCE TEACHER as a scribe. Past Medical History Past Medical History: GERD/Reflux, Hypertension, Liver Disease, Sleep Apnea/CPAP/BIPAP Additional Past Medical History / Comment(s): hx:fatty liver, deteriorating/bulging disc L3-L5, herniated disc neck History of Any Multi-Drug Resistant Organisms: None Reported Past Surgical History: Appendectomy, Orthopedic Surgery Additional Past Surgical History / Comment(s): rt knee x2, recent arthroscopy left knee 08/30/24 Past Anesthesia/Blood Transfusion Reactions: No Reported Reaction Smoking Status: Current every day smoker - Past Family History Mother Family Medical History: Cancer Medications and Allergies Home Medications Medication Instructions Recorded Confirmed Type Omeprazole [PriLOSEC] 20 mg PO DAILY 01/12/17 09/10/24 History Dextroamphetamine/Amphetamine 30 mg PO DAILY 12/30/22 09/10/24 History [Adderall Xr 30 mg Capsule] Losartan Potassium [Cozaar] 25 mg PO DAILY 12/30/22 09/10/24 History Glucosam/Rigo-Msm1/C/Jimbo/Bosw 1 each PO DAILY 08/28/24 09/10/24 History [Glucosamine-Chondroitin Tablet] Ibuprofen [Motrin] 800 mg PO Q8H PRN 08/28/24 09/10/24 History Magnesium 200 mg PO DAILY 08/28/24 09/10/24 History HYDROcodone/APAP 5-325MG [[place] 1 tab PO Q6HR PRN #12 tab 08/30/24 09/10/24 Rx 5-325] Allergies Allergy/AdvReac Type Severity Reaction Status Date / Time paper tape AdvReac blisters Uncoded 09/10/24 11:08 Physical Exam Vitals: Vital Signs Temp Pulse Resp BP Pulse Ox 09/10/24 13:00 104 H 18 108/73 95 09/10/24 12:30 106 H 16 109/71 96 09/10/24 12:23 110 H 16 134/80 95 09/10/24 12:08 95 12 112/71 91 L 09/10/24 10:58 98.5 F 09/10/24 10:55 55 L 16 150/67 100 Intake and Output 09/09/24 09/10/24 09/10/24 22:59 06:59 14:59 Intake Total 400 Balance 400 Intake: IV 400 Other: Weight 114.8 kg Results Current Medications Generic Name Dose Route Start Last Admin Trade Name Freq PRN Reason Stop Dose Admin Apixaban 5 mg 09/10/24 13:15 Apixaban 5 Mg Tab PO 10/10/24 13:14 BID NICO Protocol Lactated Ringer's 1,000 mls @ 20 mls/hr 09/10/24 09:16 09/10/24 11:06 Lactated Ringers IV 10/10/24 09:15 20 mls/hr .Q24H NICO Administration Metoprolol Succinate 25 mg 09/10/24 13:00 Metoprolol Succinate (Er) 25 Mg Tab.Er.24h PO 10/10/24 12:59 DAILY NICO Intake and Output 09/09/24 09/10/24 09/10/24 22:59 06:59 14:59 Intake Total 400 Balance 400 Intake: IV 400 Other: Weight 114.8 kg Patient Weight 09/11/24 06:59 Weight 114.8 kg
[2024-09-10 14:36] LABS: Basophils % (A) 0 %; Eosinophils # (A) 0.1 k/uL (0-0.7); Eosinophils % (A) 1 %; Lymphocytes # (A) 1.8 k/uL (1.0-4.8); Lymphocytes % (A) 20 %; MCHC 32.1 g/dL (31.0-37.0); MCV 87.1 fL (80.0-100.0); Mean Platelet Volume 7.2; Monocytes # (A) 0.5 k/uL (0-1.0); Monocytes % (A) 6 %; Neutrophils # (A) 6.6 k/uL (1.3-7.7); Neutrophils % (A) 72 %; Platelet Count 247 k/uL (150-450); RBC 6.97 m/uL (4.30-5.90); RDW 14.7 % (11.5-15.5); WBC 9.2 k/uL (3.8-10.6)
[2024-09-10 14:46] LABS: HGB 19.5 gm/dL (13.0-17.5)
[2024-09-10 14:47] LABS: African American GFR (CKD) >90 (>60 ml/min/1.73 sqM); Anion Gap 7 mmol/L; Blood Urea Nitrogen 15 mg/dL (9-20); Calcium 9.3 mg/dL (8.4-10.2); Carbon Dioxide 23 mmol/L (22-30); Chloride 105 mmol/L (98-107); Glucose 151 mg/dL (74-99); HCT 60.8 % (39.0-53.0); Magnesium 2.2 mg/dL (1.6-2.3); Non-African American GFR(CKD) >90 (>60 ml/min/1.73 sqM); Sodium 135 mmol/L (137-145)
[2024-09-10] MEDS: NICOTINE 21MG/24HR PATCH TRANSDERM SCH (16:28)
--- NOTE | 2024-09-10 17:19 | CA ---
Transthoracic Echo Report Name: Oscar Odom Age: 48 Gender: M : 1975 Exam Date: 09/10/2024 14:57 Exam Location: [facility] Ht (in): 72 Wt (lb): 253 Ordering Physician: Aida Vogel Attending/Referring Phys: [id number], Jaspreet Diesel Fleet Mechanic Isamar Jones RDCS Procedure CPT: Indications: LV function, new afib Cardiac Hx: Technical Quality: Technically difficult study Contrast 1: Definity Total Dose (mL): 1 Contrast 2: Total Dose (mL): MEASUREMENTS (Male / Female) Normal Values 2D ECHO LV Diastolic Diameter PLAX 5.0 cm 4.2 - 5.9 / 3.9 - 5.3 cm LV Systolic Diameter PLAX 3.7 cm IVS Diastolic Thickness 1.3 cm 0.6 - 1.0 / 0.6 - 0.9 cm LVPW Diastolic Thickness 1.1 cm 0.6 - 1.0 / 0.6 - 0.9 cm LV Relative Wall Thickness 0.5 LVOT Diameter 2.3 cm LV Diastolic Volume MOD BP 130.5 cm??? 67 - 155 / 56 - 104 cm??? LV Systolic Volume MOD BP 82.4 cm??? 22 - 58 / 19 - 49 cm??? LV Ejection Fraction MOD BP 36.9 % >= 55 % LV Cardiac Index MOD BP 2255.3 cm???/min???m??? LV Diastolic Volume MOD 4C 132.6 cm??? LV Systolic Volume MOD 4C 85.2 cm??? LV Ejection Fraction MOD 4C 35.8 % LV Cardiac Index MOD 4C 2223.9 cm???/min???m??? LV Diastolic Length 4C 9.8 cm LV Systolic Length 4C 8.7 cm LV Diastolic Volume MOD 2C 124.0 cm??? LV Systolic Volume MOD 2C 78.4 cm??? LV Ejection Fraction MOD 2C 36.7 % LV Cardiac Index MOD 2C 2137.9 cm???/min???m??? LV Diastolic Length 2C 9.4 cm LV Systolic Length 2C 8.6 cm LA Volume 66.8 cm??? 18 - 58 / 22 - 52 cm??? LA Volume Index 27.3 cm???/m??? 16 - 28 cm???/m??? Ascending Aorta Diameter 3.5 cm DOPPLER AV Peak Velocity 113.8 cm/s AV Peak Gradient 5.2 mmHg AV Mean Velocity 87.5 cm/s AV Mean Gradient 3.3 mmHg AV Velocity Time Integral 19.5 cm LVOT Peak Velocity 106.1 cm/s LVOT Peak Gradient 4.5 mmHg LVOT Velocity Time Integral 18.3 cm LVOT Stroke Volume 73.2 cm??? LVOT Stroke Volume Index 31.1 ml/m??? LVOT Cardiac Index 3434.9 cm???/min???m??? AV Area Cont Eq vti 3.7 cm??? AV Area Cont Eq pk 3.7 cm??? PV Peak Velocity 88.4 cm/s PV Peak Gradient 3.1 mmHg FINDINGS Left Ventricle Left ventricular ejection fraction is estimated at 40-45 %. Mildly increased septal wall thickness. Moderately increased left ventricular systolic volume. Mild to Moderately decreased left ventricular ejection fraction with global hypokinesis. Right Ventricle Right ventricle not well visualized. Unable to estimate the right ventricular systolic pressure. Right Atrium Normal right atrial size. Left Atrium Normal left atrial size. Mildly increased left atrial volume. Mildly increased left atrial area. Mitral Valve Structurally normal mitral valve. No mitral stenosis, regurgitation or prolapse. Aortic Valve Trileaflet aortic valve. No aortic valve stenosis or regurgitation. Tricuspid Valve Structurally normal tricuspid valve. No tricuspid stenosis. Trace tricuspid regurgitation. Pulmonic Valve Pulmonic valve not well visualized. No pulmonic stenosis. No pulmonic regurgitation. Pericardium No pericardial effusion. Aorta Normal size aortic root and proximal ascending aorta. CONCLUSIONS Diffuse global hypokinesis with mild to moderate LV systolic dysfunction with an ejection fraction of 40-45% Previewed by: Dr. Dae Taylor MD (Electronically Signed) Final Date: 10 September 2024 17:18
--- NOTE | 2024-09-10 17:24 | P.CONS ---
History of Present Illness - Reason for Consult Consult date: 09/10/24 Medical management Requesting physician: Endy Hu - Chief Complaint New onset A-fib post endoscopy - History of Present Illness This is a 48-year-old gentleman with significant medical history of polysubstance abuse ; nicotine dependence-2 packs/day since age 11, alcohol abuse-12 pack throughout the weekdays and on the weekends "heavy", smokes a" bowl full of joints " daily, on testosterone replacement, gastroesophageal reflux disease, hypertension, liver disease, obstructive sleep apnea, chronic back pain and multiple other medical issues developed new onset atrial fibrillation with RVR post colonoscopy reporting normal. EKG reported atrial fibrillation. Denies chest pain, palpitations or shortness of breath. Denies lightheadedness dizziness or focal deficits. Review of Systems Constitutional: Denied any fever or chills. Cardio vascular: denied any chest pain, palpitations Gastrointestinal denied any nausea vomiting Pulmonary: Denied any shortness of breath cough Neurologic denied any new focal deficits Past Medical History Past Medical History: GERD/Reflux, Hypertension, Liver Disease, Sleep Apnea/CPAP/BIPAP Additional Past Medical History / Comment(s): hx:fatty liver, deteriorating/bulging disc L3-L5, herniated disc neck History of Any Multi-Drug Resistant Organisms: None Reported Past Surgical History: Appendectomy, Orthopedic Surgery Additional Past Surgical History / Comment(s): rt knee x2, recent arthroscopy left knee 08/30/24 Past Anesthesia/Blood Transfusion Reactions: No Reported Reaction Smoking Status: Current every day smoker - Past Family History Mother Family Medical History: Cancer Medications and Allergies Home Medications Medication Instructions Recorded Confirmed Type Omeprazole [PriLOSEC] 20 mg PO DAILY 01/12/17 09/10/24 History Dextroamphetamine/Amphetamine 30 mg PO DAILY 12/30/22 09/10/24 History [Adderall Xr 30 mg Capsule] Losartan Potassium [Cozaar] 25 mg PO DAILY 12/30/22 09/10/24 History Glucosam/Rigo-Msm1/C/Jimbo/Bosw 1 each PO DAILY 08/28/24 09/10/24 History [Glucosamine-Chondroitin Tablet] Ibuprofen [Motrin] 800 mg PO Q8H PRN 08/28/24 09/10/24 History Magnesium 200 mg PO DAILY 08/28/24 09/10/24 History HYDROcodone/APAP 5-325MG [[place] 1 tab PO Q6HR PRN #12 tab 08/30/24 09/10/24 Rx 5-325] Allergies Allergy/AdvReac Type Severity Reaction Status Date / Time paper tape AdvReac blisters Uncoded 09/10/24 11:08 Physical Exam Vitals: Vital Signs Temp Pulse Resp BP Pulse Ox 09/10/24 15:19 110 H 16 117/66 94 L 09/10/24 14:35 118 H 16 118/56 92 L 09/10/24 14:20 108 H 16 95 09/10/24 14:00 106 H 16 96/59 95 09/10/24 13:30 124 H 22 117/73 95 09/10/24 13:00 104 H 18 108/73 95 09/10/24 12:30 106 H 16 109/71 96 09/10/24 12:23 110 H 16 134/80 95 09/10/24 12:08 95 12 112/71 91 L 09/10/24 10:58 98.5 F 09/10/24 10:55 55 L 16 150/67 100 Intake and Output 09/10/24 09/10/24 09/10/24 06:59 14:59 22:59 Intake Total 400 Balance 400 Intake: IV 400 Other: Weight 114.8 kg PHYSICAL EXAM: VITAL SIGNS: [Reviewed] GENERAL: Morbidly obese, alert and oriented x 3, sitting up on stretcher in recovery room, no acute distress HEENT: Normocephalic, atraumatic conjunctivae normal. eyes normal. Clear nonicteric NECK: Supple, no JVD. No thyroid enlargement. No LNs CARDIOVASCULAR: S1, S2 . irregular rate and rhythm, no murmur RESPIRATION: Unlabored, equal air entry, essentially clear to auscultation. ABDOMEN: Obese, soft, nontender . No guarding. No rebound. no masses palpable. Positive bowel sounds LEGS: No edema. no swelling. No clubbing, no cyanosis, positive DP pulses. NERVOUS SYSTEM: Cranial N 2-12 grossly normal. No focal deficits. Skin: Warm and dry, no rash Results CBC & Chem 7: 09/10/24 13:58 09/10/24 13:58 Labs: Abnormal Lab Results - Last 24 Hours (Table) 09/10/24 09/10/24 Range/Units 13:58 13:58 RBC 6.97 H (4.30-5.90) m/uL Hgb 19.5 H* (13.0-17.5) gm/dL Hct 60.8 H* (39.0-53.0) % Sodium 135 L (137-145) mmol/L Glucose 151 H (74-99) mg/dL Assessment and Plan Assessment: Routine screening colonoscopy reporting unremarkable New onset A-fib with RVR post endoscopy Hypertension Morbid obesity, BMI 49 obstructive sleep apnea with CPAP use Alcohol abuse, monitor for DTs Nicotine dependence Daily marijuana use Plan: Continue on current medication regimen ,monitoring and symptomatic treatment. CIWA protocol initiated. Labs pending; CBC, BMP, magnesium, TSH, hemoglobin A1c. Polysubstance abuse-cessation reinforced. Cardiology consult in place, 2D echo ordered, beta-felecia and anticoagulation with Eliquis initiated. Possible DC home later today pending cardiology clearance. The impression and plan of care has been dictated as directed. : I performed a history and examination of this patient, discussed the same with the dictator. I agree with the dictator's note ,documented as a scribe. Any additional findings or plans will be noted.
[2024-09-10] MEDS: APIXABAN 5 MG TAB PO SCH (17:39)
[2024-09-10] MEDS: LORazepam 2 MG/ML INJ IV PRN (18:53)
[2024-09-10 20:26] LABS: Chol/HDL Ratio 5.28 Ratio; LDL Cholesterol,Calculated 100.4 mg/dL (0.0-131.0)
[2024-09-10 21:35] LABS: % Iron Saturation 83.82 (15.00-50.00); Ferritin 78.8 ng/mL (22.0-322.0)
[2024-09-11 05:13] VITALS: TEMP 97.5
[2024-09-11 09:04] VITALS: BP 141/79; PULSE 107; RESP 16
[2024-09-11] MEDS: PANTOPRAZOLE 40 MG TABLET PO SCH (09:04)
[2024-09-11] MEDS: LOSARTAN 25 MG TAB PO SCH (09:04)
[2024-09-11] MEDS: LORazepam 2 MG/ML INJ IV PRN (09:04)
[2024-09-11] MEDS: FOLIC ACID 1 MG TAB PO SCH (09:21)
[2024-09-11] MEDS: THIAMINE 100 MG TAB PO SCH (09:21)
[2024-09-11] MEDS: MULTIVITAMINS, THERA 1 EACH TAB PO SCH (09:21)
--- NOTE | 2024-09-11 11:22 | P.PN ---
Subjective Progress Note Date: 09/11/24 HISTORY OF PRESENT ILLNESS: This is a 48-year-old male with a past medical history significant for hype rtension, obstructive sleep apnea, obesity, nicotine dependence, frequent alcohol use, and daily marijuana use. Patient does not follow with a levee superintendent. We have been asked to see the patient in consultation for A-fib with RVR. Patient examined at the bedside in the recovery room. Patient underw ent routine screening colonoscopy today with Dr. Hu. Endoscopy was unremarkable and patient's colon appeared normal per dictation. The patient was found to be tachycardic afterwards. An EKG was performed revealing atrial fibrillation with RVR. The patient denies a history of atrial fibrillation. The patient currently denies any chest pain or pressure. He denies any shortness of breath. He denies any palpitations. He denies dizziness or lightheadedness. He remains in atrial fibrillation at the time of examination with a heart rate around [id number]. Patient is a current cigarette smoker and smokes 2 packs/day. Patient reports drinking every weekend and occasionally throughout the week. He also reports daily marijuana use. He also reports a history of low testosterone and has been on testosterone replacement for the past several months. 09/11/2024 Patient seen and examined on the cardiac stepdown unit. Patient remains in atrial fibrillation heart rate is running in the low 100s. He has been started on Toprol XL 25 mg daily and he is also on anticoagulation with Eliquis. Patient denies feeling any palpitations. No shortness of breath. No chest pain. Blood pressure 141/79, heart rate 107, pulse ox 95% on room air. Echocardiogram reveals EF of 40 to 45%. PHYSICAL EXAM: VITAL SIGNS: Reviewed. GENERAL: Well-developed in no acute distress. HEENT: Head is normocephalic. Pupils are equal, round. Sclerae anicteric. Mucous membranes of the mouth are moist. Neck supple. No JVD or thyromegaly LUNGS: Respirations even and unlabored. Lungs essentially clear to auscultation bilaterally. HEART: Mildly tachycardic. Irregular rate and rhythm. S1 and S2 heard. ABDOMEN: Soft. Nondistended. Nontender. EXTREMITIES: Normal range of motion. No clubbing or cyanosis. Peripheral pulses intact. No lower extremity edema NEUROLOGIC: Awake and alert. Oriented x 3. ASSESSMENT: Status post screening colonoscopy revealing unremarkable colon New onset paroxysmal A-fib with RVR, currently rate controlled Cardiomyopathy of unclear etiology, EF 40 to 45% Hypertension Obstructive sleep apnea with CPAP use Nicotine dependence, patient reports smoking 2 packs/day Frequent alcohol use Daily marijuana use Obesity: BMI 49.4 PLAN: Continue metoprolol succinate increased to 50 mg daily and Eliquis 5 mg twice a day. Smoking cessation recommended. Patient to be referred to [place] quit line upon discharge Abstinence from alcohol and marijuana encouraged Patient is cleared for discharge from cardiology and may follow-up in the office with Dr. Gina Taylor in 2 weeks. Nurse practitioner note has been reviewed by physician. Signing provider agrees with the documented findings, assessment, and plan of care documented by FINISHING OPERATOR as a scribe. Objective - Vital Signs Vital signs: Vital Signs Temp 97.5 F L 09/11/24 04:00 Pulse 107 H 09/11/24 08:57 Resp 16 09/11/24 08:57 BP 141/79 09/11/24 08:57 Pulse Ox 95 09/11/24 08:57 FiO2 Intake & Output 09/10/24 09/11/24 09/11/24 18:59 06:59 18:59 Intake Total 400 Balance 400 Weight 114.8 kg 114.759 kg Intake: IV 400 Oral 0 Other: Voiding Method Toilet # Voids 1 - Labs CBC & Chem 7: 09/10/24 13:58 09/10/24 13:58 Labs: Abnormal Lab Results - Last 24 Hours (Table) 09/10/24 09/10/24 09/10/24 Range/Units 13:58 13:58 13:58 RBC 6.97 H (4.30-5.90) m/uL Hgb 19.5 H* (13.0-17.5) gm/dL Hct 60.8 H* (39.0-53.0) % Sodium 135 L (137-145) mmol/L Glucose 151 H (74-99) mg/dL Iron 399 H (65-175) UG/DL TIBC 476 H (228-460) UG/DL % Saturation 83.82 H (15.00-50.00) Triglycerides 191.00 H (0.00-149.00) mg/dL HDL Cholesterol 32.40 L (40.00-60.00) mg/dL
[2024-09-11] MEDS ORDERED: METOPROLOL SUCCINATE (ER) 50 MG TAB.ER.24H PO SCH (11:24)
--- NOTE | 2024-09-11 13:30 | P.DS ---
Providers Date of admission: 09/10/24 12:43 Expected date of discharge: 09/11/24 Attending physician: Poli Haley Consults: 09/10/24 12:23 Consult Physician Stat Consulting Provider: Dae Taylor Consult Reason/Comments: NEW ONSET A FIB Do you want consulting provider notified?: Yes Primary care physician: [facility] Course: Routine screening colonoscopy reporting unremarkable New onset A-fib with RVR post endoscopy Cardiomyopathy, etiology unclear, EF 40 to 45% Hypertension Morbid obesity, BMI 49 obstructive sleep apnea with CPAP use Alcohol abuse, monitor for DTs Nicotine dependence, packs per day Daily marijuana use Hospital course:This is a 48-year-old gentleman with significant medical history of polysubstance abuse ; nicotine dependence-2 packs/day since age 11, alcohol abuse-12 pack throughout the weekdays and on the weekends "heavy", smokes a" bowl full of joints " daily, on testosterone replacement, gastroesophageal reflux disease, hypertension, liver disease, obstructive sleep apnea, chronic back pain and multiple other medical issues developed new onset atrial fibrillation with RVR post colonoscopy reporting normal. EKG reported atrial fibrillation. Denies chest pain, palpitations or shortness of breath. Denies lightheadedness dizziness or focal deficits. CIWA protocol initiated. Labs pending; CBC, BMP, magnesium, TSH, hemoglobin A1c. Polysubstance abuse-cessation reinforced. Cardiology consult in place, 2D echo ordered, beta-felecia and anticoagulation with Eliquis initiated. Possible DC home later today pending cardiology clearance. 09/11/2024 denies chest pain, palpitations or shortness of breath. Occasional fine tremor. CIWA score 3. Maintained on beta-felecia and anticoagulated with Eliquis .telemetry atrial fibrillation with heart rates low 100s. Echo reported EF of 40 to 45%. Smoking/marijuana cessation reinforced, alcohol abstinence reinforced. Cleared by cardiology for discharge with recommended follow-up in 2 weeks. Patient will be discharged home today in a stable condition with guarded prognosis. Patient Condition at Discharge: Stable Plan - Discharge Summary Discharge Rx Participant: No New Discharge Prescriptions: New Folic Acid 1 mg PO DAILY tab Nicotine 21Mg/24Hr Patch [Habitrol] 1 patch TRANSDERM DAILY patch Metoprolol Succinate (ER) [Toprol XL] 50 mg PO DAILY #30 tab Apixaban [Eliquis] 5 mg PO BID #60 tab Thiamine [Vitamin B-1] 100 mg PO DAILY tab Continue Omeprazole [PriLOSEC] 20 mg PO DAILY Ibuprofen [Motrin] 800 mg PO Q8H PRN PRN Reason: Pain Magnesium 200 mg PO DAILY Glucosam/Rigo-Msm1/C/Jimbo/Bosw [Glucosamine-Chondroitin Tablet] 1 each PO DAILY Dextroamphetamine/Amphetamine [Adderall Xr 30 mg Capsule] 30 mg PO DAILY Losartan Potassium [Cozaar] 25 mg PO DAILY HYDROcodone/APAP 5-325MG [Yeaddiss 5-325] 1 tab PO Q6HR PRN #12 tab PRN Reason: Pain Discharge Medication List Omeprazole [PriLOSEC] 20 mg PO DAILY 01/12/17 [History] Dextroamphetamine/Amphetamine [Adderall Xr 30 mg Capsule] 30 mg PO DAILY 12/30/22 [History] Losartan Potassium [Cozaar] 25 mg PO DAILY 12/30/22 [History] Glucosam/Rigo-Msm1/C/Jimbo/Bosw [Glucosamine-Chondroitin Tablet] 1 each PO DAILY 08/28/24 [History] Ibuprofen [Motrin] 800 mg PO Q8H PRN 08/28/24 [History] Magnesium 200 mg PO DAILY 08/28/24 [History] HYDROcodone/APAP 5-325MG [Yeaddiss 5-325] 1 tab PO Q6HR PRN #12 tab 08/30/24 [Rx] Apixaban [Eliquis] 5 mg PO BID #60 tab 09/11/24 [Rx] Folic Acid 1 mg PO DAILY tab 09/11/24 [Rx] Metoprolol Succinate (ER) [Toprol XL] 50 mg PO DAILY #30 tab 09/11/24 [Rx] Nicotine 21Mg/24Hr Patch [Habitrol] 1 patch TRANSDERM DAILY patch 09/11/24 [Rx] Thiamine [Vitamin B-1] 100 mg PO DAILY tab 09/11/24 [Rx] Follow up Appointment(s)/Referral(s): Poli Haley MD [STAFF PHYSICIAN] - 1 Week (Please call to schedule follow up appoitment) Dae Taylor MD [STAFF PHYSICIAN] - 2 Weeks (Office will call you to schedule follow up appoitment) Patient Instructions/Handouts: A-fib (Atrial Fibrillation) (IP) Discharge Disposition: HOME SELF-CARE
[2024-09-12] MEDS ORDERED: METOPROLOL SUCCINATE (ER) 50 MG TAB.ER.24H PO SCH ×2 (09:00→11:20)
== END 2024-09-11 11:36 | disposition home or self-care (01) ==
LOC: ORWHC2ENDO 10:36 → 3SCARD 12:43
PROVIDERS: ADMIT Family Medicine; ATTEND Family Medicine
DX: Z12.11 Encounter for screening for malignant neoplasm of colon (principal); I97.191 Other postprocedural cardiac functional disturbances following other surgery; I48.0 Paroxysmal atrial fibrillation; I42.9 Cardiomyopathy, unspecified; G47.33 Obstructive sleep apnea (adult) (pediatric); I10 Essential (primary) hypertension; K21.9 Gastro-esophageal reflux disease without esophagitis; K76.0 Fatty (change of) liver, not elsewhere classified; G89.29 Other chronic pain; M54.9 Dorsalgia, unspecified; E66.01 Morbid (severe) obesity due to excess calories; Z68.42 Body mass index [BMI] 45.0-49.9, adult; F10.10 Alcohol abuse, uncomplicated; F12.90 Cannabis use, unspecified, uncomplicated; F17.210 Nicotine dependence, cigarettes, uncomplicated; Z79.899 Other long term (current) drug therapy; Z91.048 Other nonmedicinal substance allergy status; Z87.898 Personal history of other specified conditions; Z90.49 Acquired absence of other specified parts of digestive tract; Z98.890 Other specified postprocedural states
CPT/HCPCS: 80061; 80048; 84443; 82728; 83540; 83550; 83735; 85025; 83036; 45378; G0378 ×2; C8929; S4990 ×2; J2060 ×2; J2003; Q9957; J2704; 93306

== ENCOUNTER 2024-10-09 06:09 | Day surgery (SDC) | payer MEDICARE, OTHER ==
[~2024-10-09 06:09] MED LIST changes: -HYDROmorphone 0.5 MG/0.5 ML SYRINGE IVP PRN; -LIDOCAINE 1% (10MG/ML) FOR IV START INTRADERMA PRN; +SODIUM CHLORIDE 0.9% 1,000 ML IV SCH; -droPERidol 5 MG/2 ML VIAL IVP ONE
[2024-10-09] MEDS: SODIUM CHLORIDE 0.9% 500 ML 500 ML IV ONE (06:55)
[2024-10-09 07:02] VITALS: TEMP 97.8
[2024-10-09 07:25] LABS: African American GFR (CKD) >90 (>60 ml/min/1.73 sqM); Anion Gap 5 mmol/L; Blood Urea Nitrogen 19 mg/dL (9-20); Calcium 9.1 mg/dL (8.4-10.2); Carbon Dioxide 28 mmol/L (22-30); Chloride 103 mmol/L (98-107); Glucose 121 mg/dL (74-99); Non-African American GFR(CKD) >90 (>60 ml/min/1.73 sqM); Potassium 4.6 mmol/L (3.5-5.1); Sodium 136 mmol/L (137-145)
[2024-10-09] MEDS ORDERED: PROPOFOL 10 MG/ML 20 ML VIAL IV ONE (07:25)
[2024-10-09] MEDS ORDERED: LIDOCAINE 1% INJ 10MG/ML (20 ML MDV) ONE (07:25)
[2024-10-09] MEDS: BENZOCAINE SPRAY 1 EACH MM ONE (07:30)
--- NOTE | 2024-10-09 08:01 | ECHOT ---
TRANSESOPHAGEAL ECHOCARDIOGRAM INDICATION: To rule out intracardiac thrombus prior to cardioversion in a patient with persistent atrial fibrillation. PROCEDURE NOTE: After obtaining informed consent, transesophageal echocardiogram was performed in left lateral position using an Omniplane probe. Local and IV sedation were obtained by the lead software development engineer. The patient tolerated the procedure well without any obvious immediate complications. FINDINGS: 1. There is no intracardiac thrombus within the left atrial appendage, left atrium, right atrium, right ventricle, or left ventricle. 2. Right atrium and right ventricle appear enlarged. 3. Left atrium appears enlarged. 4. Left ventricle has normal size and systolic function. 5. Mitral valve is anatomically normal. There is mild mitral regurgitation noted. Tricuspid valve shows mild tricuspid regurgitation. Aortic valve is a 3-leaflet valve. There is no evidence of aortic stenosis or regurgitation. Aortic root measures within normal limits. Interatrial septum, there is no evidence of left-to- right shunt by color-flow Doppler or [id number] shunt by agitated saline contrast study. CONCLUSION: 1. No intracardiac thrombus. 2. Normal left ventricular systolic function. PLAN: We will proceed with cardioversion. MMODL / IJN: [id number] /
[2024-10-09 08:10] VITALS: RESP 18
[2024-10-09] MEDS ORDERED: SODIUM CHLORIDE 0.9% 1,000 ML IV SCH (08:30)
[2024-10-09 09:15] VITALS: BP 128/69; PULSE 94
--- NOTE | 2024-10-10 08:19 | PCN ---
PROCEDURE NOTE CARDIOVERSION NOTE INDICATION: Persistent atrial fibrillation. The patient underwent electrical cardioversion with 120, 150, and 200 joules of synchronized DC current. He initially converted to sinus rhythm following the 1st shock, but reverted back to atrial fibrillation and I attempted cardioversion twice again, but was unsuccessful. I decided to continue with rate control and anticoagulation at this time and maybe consider referral to EP. The patient ruled out intracardiac thrombus with a EJ and patient is adequately anticoagulated with Eliquis. CONCLUSION: Unsuccessful cardioversion. PLAN: He will continue current medications. MMODL / IJN: [id number] /
== END 2024-10-09 09:20 | disposition home or self-care (01) ==
LOC: OR 06:09
PROVIDERS: ATTEND Internal Medicine Cardiovascular Disease
DX: I48.19 Other persistent atrial fibrillation (principal); I10 Essential (primary) hypertension; F17.210 Nicotine dependence, cigarettes, uncomplicated; G47.33 Obstructive sleep apnea (adult) (pediatric); K21.9 Gastro-esophageal reflux disease without esophagitis; F10.99 Alcohol use, unspecified with unspecified alcohol-induced disorder; M54.2 Cervicalgia; L23.1 Allergic contact dermatitis due to adhesives; Z82.49 Family history of ischemic heart disease and other diseases of the circulatory system; Z90.89 Acquired absence of other organs; Z89.521 Acquired absence of right knee; Z99.89 Dependence on other enabling machines and devices; Z79.01 Long term (current) use of anticoagulants; Z79.899 Other long term (current) drug therapy
CPT/HCPCS: 93312; 93320; 93325; 92960; 80048; J2003; J2704

== ENCOUNTER 2025-01-31 09:02 | Day surgery (SDC) | payer MEDICARE, OTHER ==
[2025-01-31] MEDS: SODIUM CHLORIDE 0.9% 1,000 ML IV SCH (10:21)
[2025-01-31] MEDS: IV FLUID CONTINUATION 1,000 ML IV ONE (10:23)
[2025-01-31 10:38] LABS: Basophils # (A) 0.05 10*3/uL (0.00-0.10); Basophils % (A) 0.5 %; Eosinophils # (A) 0.11 10*3/uL (0.04-0.35); Eosinophils % (A) 1.2 %; Lymphocytes # (A) 2.33 10*3/uL (0.90-5.00); Lymphocytes % (A) 25.2 %; MCH 29.5 pg (27.0-32.0); MCHC 34.1 g/dL (32.0-37.0); MCV 86.6 fL (80.0-97.0); Mean Platelet Volume 8.8 fL (9.5-12.2); Monocytes # (A) 1.02 10*3/uL (0.20-1.00); Neutrophils # (A) 5.69 10*3/uL (1.80-7.70); Neutrophils % (A) 61.7 %; Platelet Count 290 10*3/uL (140-440); RBC 7.32 10*6/uL (4.40-5.60); RDW 15.6 % (11.5-14.5); WBC 9.24 10*3/uL (4.50-10.00)
[2025-01-31] MEDS: HEPARIN SODIUM,PORCINE (1 ML) 2,500 UNIT in SODIUM CHLORIDE 0.9% 250 ML IRRIGATION ONE (10:50)
[2025-01-31 10:51] LABS: ALT 35 U/L (4-49); AST 35 U/L (17-59); African American GFR (CKD) >90 (>60 ml/min/1.73 sqM); Albumin 4.1 g/dL (3.5-5.0); Alkaline Phosphatase 81 U/L (38-126); Anion Gap 8 mmol/L; Blood Urea Nitrogen 20 mg/dL (9-20); Calcium 9.3 mg/dL (8.4-10.2); Carbon Dioxide 24 mmol/L (22-30); Chloride 104 mmol/L (98-107); Glucose 129 mg/dL (74-99); Non-African American GFR(CKD) >90 (>60 ml/min/1.73 sqM); Potassium 4.7 mmol/L (3.5-5.1); Sodium 136 mmol/L (137-145); Total Bilirubin 1.2 mg/dL (0.2-1.3); Total Protein 6.7 g/dL (6.3-8.2)
[2025-01-31] MEDS: HEPARIN SODIUM,PORCINE 10,000 UNIT in SODIUM CHLORIDE 0.9% 1,000 ML IRRIGATION ONE (10:51)
[2025-01-31 10:57] LABS: HCT 63.4 % (39.6-50.0); HGB 21.6 g/dL (13.0-17.0)
[2025-01-31] MEDS: HEPARIN SOD,PORK IN 0.45% NACL 25,000 UNIT in 0.45% NACL 1 250ML.BAG IV ONE (11:30)
[2025-01-31] MEDS: LIDOCAINE 1% INJ 10MG/ML (20 ML MDV) SQ ONE (11:43)
[2025-01-31] MEDS: IOPAMIDOL-370 100ML BTL INJ ONE (13:29)
--- NOTE | 2025-01-31 19:15 | P.EPPROC ---
- EP Procedure Note Electrophysiology Procedure Note: PROCEDURE A. fib ablation with PVI, left atrial roof and left atrial septal ablation DIAGNOSIS Long paroxysms of atrial fibrillation, symptomatic, refractory to therapy Mild cardiomyopathy RESULT No left atrial appendage mass seen on intracardiac echo Cardiomyopathy on intracardiac echo Successful A. fib ablation/pulmonary vein isolation of all veins using cryo- ablation Complete entrance block in all 4 veins confirmed No evidence for phrenic nerve injury Esophageal deflection YES Electrical cardioversion with a synchronized shock across the chest YES PROCEDURE DETAILS Written informed consent prior to procedure. Patient brought to the EP lab. General anesthesia given. Heparin administered. A city maintained above 300 seconds Both groins prepped and draped per protocol and venous sheaths placed. Esophagus intubated, circa catheter for temperature monitoring an endoscope for possible esophageal deflection. Phrenic nerve monitoring performed. Esophageal temperature monitoring performed. Esophageal deflection performed if circa catheter overlapping with the balloon or circa temperature less than 27.5°C Intracardiac echocardiography performed. Pericardium evaluated. Left atrial appendage evaluated. Left atrium evaluated along with pulmonary veins Transseptal catheterization performed under fluoroscopic guidance and intracardiac echo guidance Cryoablation sheath exchanged, balloon catheter along with achieve catheter placed in the left atrium. Pulmonary veins isolated in the following sequence: Left superior pulmonary vein followed by left inferior pulmonary vein, followed by right inferior pulmonary vein and lastly right superior pulmonary vein. Phrenic nerve stimulation along with capture thresholds within the SVC and right superior pulmonary vein to identify the phrenic nerve proximity to the cryo- balloon. Pulmonary veins isolated and confirmed with entrance and exit block. Phrenic nerve integrity confirmed at the end of the procedure Ablation of the left atrial roof performed with sequential lesions from the left superior to the right superior pulmonary veins. Ablation of the electrograms confirmed Ablation of the left atrial septum performed with cannulation of the superior branch of the right inferior and the inferior branch of the right superior vein to achieve ablation of the posterior septum of the left atrium. Ablation of electrograms confirmed Electrical cardioversion performed for persistence of atrial fibrillation d espite successful ablation. Diagnostic catheters for the high right atrium, His bundle, coronary sinus placed. LA and RA pressures recorded LA pressure: 08/02/10 Diagnostic EP study with coronary sinus pacing and recording Baseline measurements: Sinus cycle length 618 ms, NV interval 142 ms, QRS 97 and QT interval 343 ms HV interval 37 ms Venous sheaths were removed and hemostasis assured with a closure device. Patient extubated and transferred to recovery PROCEDURES PERFORMED Diagnostic EP study CS pacing and recording Left and right transseptal catheterization Catheter the mapping of the tachycardia Intracardiac echocardiography Pulmonary vein isolation with transseptal and comprehensive EPS, [id number] Left atrial roof line, +[id number] Linear ablation, left atrium, +[id number] Electrical cardioversion with a synchronized shock across the chest [id number]
--- NOTE | 2025-01-31 19:18 | P.HPCAR ---
History of Present Illness This is Dr. Foreman dictating an H/P on this patient The patient was interviewed and examined IMPRESSION / ASSESSMENT: Longstanding, symptomatic persistent atrial fibrillation spite adequate rate control Cardiomyopathy Failed electrical cardioversion PLAN: A-fib ablation Heparin dose calculated Continue anticoagulation HPI Patient feels very tired and fatigued and short of breath. Mildly dizzy No chest discomfort no loss of consciousness No fever chills cough expectoration ROS: No fever chills or rigors, no cough, phlegm or expectoration, no nausea, vomiting or diarrhea, no hematuria, dysuria, no musculoskeletal complaints, no strokes or seizures, no skin lesions. EXAMINATION: Blood pressure 112/57 mmHg pulse rate in the 80s Heart sounds S1-S2 are normal no murmurs or gallops or rub Breath sounds are clear No rhonchi no crackles No lower extremity edema No JVD REVIEW OF LABS, ECG & MEDICAL DATA Medications include Eliquis metoprolol succinate Adderall losartan testosterone injections and Prilosec Physical Exam Vitals: Vital Signs Temp Pulse Resp BP BP Pulse Ox 01/31/25 17:00 80 18 109/70 99 01/31/25 16:05 82 16 126/55 93 L 01/31/25 15:35 81 16 131/61 93 L 01/31/25 15:20 80 16 112/57 90 L 01/31/25 15:05 80 16 117/59 93 L 01/31/25 14:50 80 16 113/65 93 L 01/31/25 14:31 79 16 98/64 97 01/31/25 14:16 76 16 112/57 97 01/31/25 14:02 78 14 89/66 97 01/31/25 13:45 97.4 F L 75 14 87/57 97 01/31/25 10:24 97.7 F 89 16 120/78 96 Intake and Output 01/31/25 01/31/25 01/31/25 06:59 14:59 22:59 Intake Total 907 240 Balance 907 240 Intake: IV 907 Oral 240 Other: Voiding Method Toilet # Voids 1 Weight 115.2 kg 115.2 kg Past Medical History Past Medical History: Atrial Fibrillation, Cancer, GERD/Reflux, Hypertension, Liver Disease, Sleep Apnea/CPAP/BIPAP Additional Past Medical History / Comment(s): See Dr. Krishen's H&P; hx fatty liver, deteriorating/bulging disc L3-L5, herniated disc neck; ca removed off tongue; uses CPAP History of Any Multi-Drug Resistant Organisms: None Reported Past Surgical History: Appendectomy, Back Surgery, Orthopedic Surgery Additional Past Surgical History / Comment(s): rt knee x2, left knee arthroscopy, colonoscopy, attempted cardioversion Past Anesthesia/Blood Transfusion Reactions: No Reported Reaction Smoking Status: Current every day smoker - Past Family History Mother Family Medical History: Cancer Physical Examination Vital Signs Temp Pulse Resp BP BP Pulse Ox 01/31/25 17:00 80 18 109/70 99 01/31/25 16:05 82 16 126/55 93 L 01/31/25 15:35 81 16 131/61 93 L 01/31/25 15:20 80 16 112/57 90 L 01/31/25 15:05 80 16 117/59 93 L 01/31/25 14:50 80 16 113/65 93 L 01/31/25 14:31 79 16 98/64 97 01/31/25 14:16 76 16 112/57 97 01/31/25 14:02 78 14 89/66 97 01/31/25 13:45 97.4 F L 75 14 87/57 97 01/31/25 10:24 97.7 F 89 16 120/78 96 Intake and Output 01/31/25 01/31/25 01/31/25 06:59 14:59 22:59 Intake Total 907 240 Balance 907 240 Intake: IV 907 Oral 240 Other: Voiding Method Toilet # Voids 1 Weight 115.2 kg 115.2 kg Results 01/31/25 10:25 01/31/25 10:25 Cardiac Enzymes 01/31/25 Range/Units 10:25 AST 35 (17-59) U/L CBC 01/31/25 Range/Units 10:25 WBC 9.24 (4.50-10.00) 10*3/uL RBC 7.32 H (4.40-5.60) 10*6/uL Hgb 21.6 H* (13.0-17.0) g/dL Hct 63.4 H* (39.6-50.0) % Plt Count 290 (140-440) 10*3/uL Comprehensive Metabolic Panel 01/31/25 Range/Units 10:25 Sodium 136 L (137-145) mmol/L Potassium 4.7 (3.5-5.1) mmol/L Chloride 104 (98-107) mmol/L Carbon Dioxide 24 (22-30) mmol/L BUN 20 (9-20) mg/dL Creatinine 0.89 (0.66-1.25) mg/dL Glucose 129 H (74-99) mg/dL Calcium 9.3 (8.4-10.2) mg/dL AST 35 (17-59) U/L ALT 35 (4-49) U/L Alkaline Phosphatase 81 (38-126) U/L Total Protein 6.7 (6.3-8.2) g/dL Albumin 4.1 (3.5-5.0) g/dL Current Medications Generic Name Dose Route Start Last Admin Trade Name Freq PRN Reason Stop Dose Admin Apixaban 5 mg 01/31/25 21:00 Apixaban 5 Mg Tab PO 03/02/25 20:59 BID NICO Protocol Losartan Potassium 25 mg 02/01/25 09:00 Losartan 25 Mg Tab PO 03/03/25 08:59 DAILY NICO Magnesium Oxide 400 mg 02/01/25 09:00 Magnesium Oxide 400 Mg Tab PO 03/03/25 08:59 DAILY NICO Metoprolol Succinate 50 mg 02/01/25 09:00 Metoprolol Succinate (Er) 50 Mg Tab.Er.24h PO 03/03/25 08:59 DAILY NICO Pantoprazole Sodium 40 mg 02/01/25 09:00 Pantoprazole 40 Mg Tablet PO 03/03/25 08:59 DAILY NICO Intake and Output 01/31/25 01/31/25 01/31/25 06:59 14:59 22:59 Intake Total 907 240 Balance 907 240 Intake: IV 907 Oral 240 Other: Voiding Method Toilet # Voids 1 Weight 115.2 kg 115.2 kg Patient Weight 02/01/25 06:59 Weight 115.2 kg 01/31/25 10:25 01/31/25 10:25
--- NOTE | 2025-01-31 19:19 | P.PRLE ---
RE: Oscar Odom Dear Slava Moore underwent an A-fib ablation for symptomatic persistent atrial fibrillation His intracardiac echo confirmed mild cardiomyopathy At this time I would recommend uninterrupted Eliquis specifically for the next 2 months In addition complete cessation from alcohol use as well as avoidance of testosterone injections would be recommended Thank you for entrusting me with the care of the patient Warm regards Sincerely Brennan Foreman
[2025-01-31] MEDS: APIXABAN 5 MG TAB PO SCH (20:00)
[2025-02-01] MEDS: LACTATED RINGERS 1,000 ML IV SCH (05:13)
--- NOTE | 2025-02-01 09:00 | P.DS ---
Providers Expected date of discharge: 02/01/25 Attending physician: Brennan Foreman Primary care physician: [facility] Course: This is a 49-year-old male brought into the hospital to the care of Dr. Foreman and is status post atrial fibrillation ablation. Patient remains in a sinus rhythm this morning. Blood pressure 120/72, heart rate in the 80s. Patient states he feels a little sore today. He has had's some spitting up blood in small amount of urine in his blood as well. EKG has been reviewed by Dr. Foreman. Patient has been clearly instructed to continue anticoagulation for full 2-months without interruption. Patient will be discharged home today in stable condition. Recommended alcohol cessation and avoidance of testosterone injections. Physical examination: Gen: This is a 49-year-old male in no acute distress VS: reviewed HEENT: Head is atraumatic, normocephalic. Pupils equal, round. Sclerae is anicteric. NECK: Supple. No JVD. LUNGS: Clear to auscultation. No wheezes or rhonchi. No intercostal retractions. HEART: Regular rate and rhythm. No murmur. ABDOMEN: Soft No tenderness. EXTREMITIES: No pedal edema. No calf tenderness. NEUROLOGICAL: Patient is awake, alert and oriented x3. Assessment: Status post atrial fibrillation ablation Persistent symptomatic atrial fibrillation Mild Cardiomyopathy with mild CAD Nurse practitioner note has been reviewed, I agree with documented findings and plan of care. Patient was seen and examined. Patient Condition at Discharge: Good Plan - Discharge Summary Discharge Rx Participant: No New Discharge Prescriptions: Continue Omeprazole [PriLOSEC] 20 mg PO DAILY Ibuprofen [Motrin] 800 mg PO Q8H PRN PRN Reason: Pain Magnesium 200 mg PO DAILY Glucosam/Rigo-Msm1/C/Jimbo/Bosw [Glucosamine-Chondroitin Tablet] 1 each PO DAILY Metoprolol Succinate (ER) [Toprol XL] 50 mg PO DAILY #30 tab Testosterone Cypionate [Depo-Testosterone] 200 mg IM WEEKLY T-Hero 1 tab PO DAILY Dextroamphetamine/Amphetamine [Adderall Xr 30 mg Capsule] 30 mg PO DAILY Losartan Potassium [Cozaar] 25 mg PO DAILY Apixaban [Eliquis] 5 mg PO BID #60 tab Nitrous Oxide Booster 1 tab PO DAILY Discharge Medication List Omeprazole [PriLOSEC] 20 mg PO DAILY 01/12/17 [History] Dextroamphetamine/Amphetamine [Adderall Xr 30 mg Capsule] 30 mg PO DAILY 12/30 [History] Losartan Potassium [Cozaar] 25 mg PO DAILY 12/30/22 [History] Glucosam/Rigo-Msm1/C/Jimbo/Bosw [Glucosamine-Chondroitin Tablet] 1 each PO DAILY 08/28/24 [History] Ibuprofen [Motrin] 800 mg PO Q8H PRN 08/28/24 [History] Magnesium 200 mg PO DAILY 08/28/24 [History] Apixaban [Eliquis] 5 mg PO BID #60 tab 09/11/24 [Rx] Metoprolol Succinate (ER) [Toprol XL] 50 mg PO DAILY #30 tab 09/11/24 [Rx] Nitrous Oxide Booster 1 tab PO DAILY 10/09/24 [History] T-Hero 1 tab PO DAILY 10/09/24 [History] Testosterone Cypionate [Depo-Testosterone] 200 mg IM WEEKLY 10/09/24 [History] Follow up Appointment(s)/Referral(s): Brennan Foreman MD [STAFF PHYSICIAN] - 1 Week Discharge Disposition: HOME SELF-CARE
[2025-02-01] MEDS: LOSARTAN 25 MG TAB PO SCH (09:29)
[2025-02-01] MEDS: PANTOPRAZOLE 40 MG TABLET PO SCH (09:30)
[2025-02-01] MEDS: MAGNESIUM OXIDE 400 MG TAB PO SCH (09:30)
[2025-02-01] MEDS: METOPROLOL SUCCINATE (ER) 50 MG TAB.ER.24H PO SCH (09:30)
[2025-02-01 10:13] VITALS: BP 129/67; PULSE 80; RESP 20; TEMP 98.5
== END 2025-02-01 09:37 | disposition home or self-care (01) ==
LOC: CATHEP 09:02 → 3SCARD 13:54 → CATHEP 02-01 09:37
PROVIDERS: ATTEND Internal Medicine Clinical Cardiac Electrophysiology
DX: I48.11 Longstanding persistent atrial fibrillation (principal); I42.9 Cardiomyopathy, unspecified; I10 Essential (primary) hypertension; I25.10 Atherosclerotic heart disease of native coronary artery without angina pectoris; G47.30 Sleep apnea, unspecified; K21.9 Gastro-esophageal reflux disease without esophagitis; K76.0 Fatty (change of) liver, not elsewhere classified; F17.200 Nicotine dependence, unspecified, uncomplicated; Z79.01 Long term (current) use of anticoagulants; Z79.899 Other long term (current) drug therapy; Z82.49 Family history of ischemic heart disease and other diseases of the circulatory system
CPT/HCPCS: 92960; 93656; 93657; 86900; 86901; 80053; 84443; 85025; 86850; C1894; C1769; C1760 ×3; C1730 ×2; C1759; C1733; C1766; J1644 ×3; J2003; Q9967